=== PATIENT | male | born 1960 | race Caucasian/White ===

== ENCOUNTER → 2024-02-13 14:52 | Outpatient (REF) | payer BC, SELFPAY | LOC: DHCBS MAIN 14:52 | PROVIDERS: ATTENDING PHYSICIAN Internal Medicine Cardiovascular Disease; FAMILY PHYSICIAN Family Medicine | DX: I48.91 Unspecified atrial fibrillation (principal) | CPT/HCPCS: 93306 ==

== ENCOUNTER 2024-03-12 10:19 | Day surgery (SDC) | payer MEDICARE, BC, SELFPAY ==
[2024-03-12 11:50] LABS: Glucose - Point of Care 146 mg/dl (70-99)
--- NOTE | 2024-03-12 12:03 | ITS.CL.CARDI ---
Shell Shop Supervisor - Cardioversion
Cardioversion
Procedure Report:
Procedure: Direct current electrical cardioversion
Pre-operative diagnosis: Persistent atrial fibrillation
Post-operative diagnosis: Persistent atrial fibrillation status post DC cardioversion to sinus rhythm
Anesthesia: MAC
Attending Physician: Pedro Pablo Rodriguez MD
Procedure Description: The patient was brought to the electrophysiology laboratory in the fasting state. Adherence to anticoagulation regimen was confirmed. Informed consent was obtained from the patient prior to the start of the procedure.
Electrodes were placed on the patient and connected to an external defibrillator. Monitoring of blood pressure, ECG tracings, and pulse oximetry was initiated. The pads were applied to the patient in the anterior and posterior positions. The patient
was sedated by the anesthesiologist. 200 joule and subsequent 360 joule biphasic synchronized shocks was delivered to the patient under MAC anesthesia. Sinus rhythm was successfully restored. The patient recovered uneventfully from MAC anesthesia.
There were no immediate post-procedure complications. The patient left the lab in good condition. The attending physician was present throughout the entire procedure.
Impression: Successful direct current cardioversion with jehovah's witness of sinus rhythm after 200 joule and subsequent 360 joule biphasic synchronized shocks.
== END 2024-03-12 13:10 | disposition home or self-care (01) ==
LOC: CATH 10:19
PROVIDERS: ATTENDING PHYSICIAN Internal Medicine Cardiovascular Disease; FAMILY PHYSICIAN Family Medicine
DX: I48.19 Other persistent atrial fibrillation (principal); I10 Essential (primary) hypertension; E78.00 Pure hypercholesterolemia, unspecified; E11.9 Type 2 diabetes mellitus without complications; G47.33 Obstructive sleep apnea (adult) (pediatric); K21.9 Gastro-esophageal reflux disease without esophagitis; E66.9 Obesity, unspecified; Z68.41 Body mass index [BMI] 40.0-44.9, adult; Z87.891 Personal history of nicotine dependence; Z79.84 Long term (current) use of oral hypoglycemic drugs; Z79.82 Long term (current) use of aspirin
CPT/HCPCS: 82962; 92960; 93005

== ENCOUNTER → 2024-04-14 11:32 | Outpatient (REF) | payer MEDICARE, BC, SELFPAY | LOC: RAD 11:32 | PROVIDERS: ATTENDING PHYSICIAN Family Medicine | DX: Z13.6 Encounter for screening for cardiovascular disorders (principal); Z87.891 Personal history of nicotine dependence | CPT/HCPCS: 76770 ==

== ENCOUNTER → 2024-05-18 12:55 | Outpatient (REF) | payer MEDICARE, BC, SELFPAY ==
[2024-05-18 13:22] LABS: % Basophils 0.7 % (0-2); % Eosinophils 3.3 % (0-6); % Immature Granulocytes 0.4 % (0-0.5); % Lymphocytes 15.1 % (20.5-51.1); % Monocytes 8.9 % (1.7-9.3); % Neutrophils 71.6 % (42.2-75.2); Absolute Basophils 0.1 10^3/uL (0-0.2); Absolute Eosinophils 0.3 10^3/uL (0-0.7); Absolute Lymphocytes 1.4 10^3/uL (1.2-3.4); Absolute Monocytes 0.8 10^3/uL (0.1-0.6); Absolute Neutrophils 6.6 10^3/uL (1.4-6.5); Hematocrit 42.7 % (39.0-52.0); Hemoglobin 12.7 g/dL (13.0-18.0); Mean Corp Hgb Conc. 29.7 g/dL (33.0-37.0); Mean Corpuscular Hgb 24.4 pg (27.0-31.0); Mean Platelet Volume 9.8 fL (7.4-10.4); Nucleated Red Blood Cells % 0 % (-); Platelet Count 225 10^3/uL (130-400); Red Blood Cell Count 5.21 10^6/uL (4.70-6.10); Red Cell Dist. Width 17.2 % (11.5-14.5); White Blood Cell Count 9.2 10^3/uL (4.8-10.8)
[2024-05-18 13:32] LABS: INR 2.13; PT 23.7 Sec (11.4-14.6)
[2024-05-18 13:35] LABS: ALT (SGPT) 25 U/L (0-50); AST (SGOT) 28 U/L (17-59); Albumin 4.3 g/dl (3.5-5.0); Alkaline Phosphatase 63 U/L (38-126); Blood Urea Nitrogen 23 mg/dl (9-20); Carbon Dioxide 32 mmol/L (22-30); Chloride 102 mmol/L (98-107); Glucose 98 mg/dl (70-99); Magnesium 1.9 mg/dl (1.6-2.3); Potassium 4.4 mmol/L (3.5-5.1); Sodium 142 mmol/L (135-145); Total Bilirubin 0.9 mg/dl (0.2-1.3); Total Protein 7.2 g/dl (6.3-8.2); eGFR > 60.00
== END ==
LOC: SDSPAT 12:55
PROVIDERS: ATTENDING PHYSICIAN Internal Medicine Cardiovascular Disease; FAMILY PHYSICIAN Family Medicine; OTHER PHYSICIAN Internal Medicine Cardiovascular Disease
DX: Z01.818 Encounter for other preprocedural examination (principal); I48.0 Paroxysmal atrial fibrillation
CPT/HCPCS: 36415; 75572; 80053; 83735; 85025; 85610; 86850; 86900; 86901; Q9967

== ENCOUNTER 2024-06-04 08:57 | Day surgery (SDC) | payer MEDICARE, BC, SELFPAY ==
[2024-05-18 13:05] VITALS: BMI 47.3
[2024-06-04] VITALS (11 sets, daily range): BP systolic 82–147; BP diastolic 59–84
[2024-06-04 09:55] LABS: Glucose - Point of Care 131 mg/dl (70-99)
--- NOTE | 2024-06-04 11:04 | ITS.CL.ABL ---
Environmental Management Specialist - Ablation
Ablation
Procedure Report:
Primary Client Services Director: Pedro Pablo Rodriguez MD
Procedure Date: 06/04/2024
Patient History:
Patient is a pleasant 64-year-old male with history of hypertension, hypercholesterolemia, diabetes mellitus type 2, sleep apnea, chronic lower extremity swelling, morbid obesity, and symptomatic persistent atrial fibrillation.
See H&P for complete details.
Indication:
Symptomatic persistent atrial fibrillation
Early recurrence following cardioversion
Arrhythmia Specific History:
Prior Medical Therapies for Rate and Rhythm Control:
X Beta-ami
[ ] Calcium channel-ami
[ ] Amiodarone
[ ] Dronederone
[ ] Sotalol
[ ] Flecainide
[ ] Dofetilide
[ ] Options limited by bradycardia
[ ] Options limited by comorbid renal disease
Prior Procedural Therapies for AF/AFL:
X Cardioversion
[ ] Pulmonary Vein Isolation
[ ] Posterior Wall Isolation
[ ] Additional lines (Specify)
[ ] Surgical Mclain-MAZE or PVI (Specify)
Procedure Performed:
X AF ablation procedure (66577) -- includes LA/CS pacing, trans-septal, 3D mapping, + ICE
[ ] +IV drug (49157)
[ ] +Other Arrhythmia (75931)
X +Other AF Line/ablation (79355) -- posterior wall isolation
Risks and expected recovery has been explained in detail. Alternative options have been explored, and in a shared-decision making fashion we have decided that this was the most appropriate procedure.
Method
NPO status confirmed. Grounding pad applied. Defibrillator pads applied. Continuous surface ECG, pulse oximetry, and blood pressure were monitored. Procedure was performed under general anesthesia, with anesthesia services.
Both groins were clipped, prepped with Chloraprep, and draped in sterile fashion. Time out was called. Local anesthesia administered with bupivacaine. The right and left femoral veins were accessed for catheter placement, using ultrasound guidance,
micro-puncture needle/wire, and modified seldinger technique. 3 sheaths were placed. The following catheters were used:
[ ] Tacticath SE (D/F Curve) ablation catheter
X Viewflex 9Fr ICE catheter
X Inquiry decapolar 6Fr diagnostic catheter
[ ] CRD Hex 6Fr
[ ] Arctic Front Advance Cryoballoon ([ ]28mm[ ]23mm)
[ ] Achieve Advance mapping catheter ([ ]15mm[ ]20mm)
X FlexCath Contour 10 Fr with PulseSelect PFA Catheter
X Advisor HD Grid Mapping Catheter, SE
[ ] Acuson AcuNav 8 Fr ICE catheter
[ ]Other: [ ]
Intracardiac ultrasound (ICE) was carefully advanced into the right atrium to guide sheath placement over a J-wire, catheter placement, guide trans-septal puncture, identify potential complications, identify anatomic structures and ensure proper
contact between ablation catheter and tissue.
Heparin was given prior to trans-septal puncture. Heparin was given to achieve and maintain a target ACT of 300-400 seconds throughout the procedure.
Trans-septal access was performed under ICE guidance. The trans-septal puncture was performed with a SafeSept wire through a Brockenbrough needle assembly through the steerable sheath. The wire was visualized as it entered the LSPV and system
advanced under ICE guidance and fluoroscopy into the LA. The Brockenbrough needle assembly, SafeSept wire and sheath dilator were removed under negative pressure. LA pressure was measured and recorded.
ICE and 3D mapping was performed to identify relevant cardiac structures. A careful 3D map was created to assess for regions of low-voltage and abnormal electrogram signals using HD grid mapping catheter and PulseSelect catheter. Additional mapping
was performed as outlined below.
Prior to ablation, glycopyrrolate was provided. PulseSelect catheter was advanced over J-wire to the ostium of each vein. Pulmonary vein isolation was performed with ostial and antral lesions in a circumferential manner. Contact was visualized via
EAM, ICE, fluoroscopy, and EGM signals. Posterior wall isolation was performed by anchoring the J-wire within the pulmonary vein and placing the PulseSelect catheter in contact with the posterior wall as visualized by aforementioned methods.
Following completion of ablation lesions, sinus rhythm was restored with a 360J synchronized DCCV (intial attempt with 300J DCCV unsuccessful) and a post-ablation voltage/activation map was performed in sinus rhythm. Entrance and exit block were
confirmed for each vein and the posterior wall.
Catheter and sheath were removed from the left atrium and post-ablation intracardiac echo evaluation was consistent with pre-ablation with no changes and no pericardial effusion and there is no left atrial thrombus or left ventricle thrombus seen.
Electrophysiology study was performed. Hemostasis was obtained with Vascade for each sheath and with manual pressure. Protamine was used for reversal.
Estimated Blood Loss
10 mL
Complications
None
Fluoroscopy: 13.4 minutes; 259.92 mGy; DAP 27.7
Baseline Intervals:
Rhythm: AF
QRS: 83 ms
QT: 372 ms
QTc: 441 ms
Post-Procedure Intervals:
CO: 177 ms
QRS: 83 ms
QT: 441 ms
QTc: 403 ms
A-A: 1200 ms
R-R: 1200 ms
AVWB: 410 ms
AVNERP: 600/370 ms
Recommendations
- Bedrest with straight-leg precautions as ordered
- Anticipate same day discharge if patient meeting clinical metrics
- Resume home medications as indicated
- Ok to resume anticoagulation tonight if patient and groin sites stable
- PPI daily for 30 days
- Plan for follow-up in office with Dr. Rodriguez
Damian Sparks,
Clinical Cardiac Planner Internship
cc: Pedro Pablo Rodriguez MD; Brianna Rutherford MD
[2024-06-04 11:44] LABS: ACT-LR - POC 292 Seconds (116-155)
[2024-06-04 12:00] LABS: ACT-LR - POC 337 Seconds (116-155)
[2024-06-04 12:17] LABS: ACT-LR - POC 332 Seconds (116-155)
[2024-06-04 12:24] LABS: Glucose - Point of Care 106 mg/dl (70-99)
[2024-06-04 12:39] LABS: ACT-LR - POC 374 Seconds (116-155)
[2024-06-04 13:19] LABS: ACT-LR - POC 311 Seconds (116-155)
[2024-06-04 13:48] LABS: ACT-LR - POC 232 Seconds (116-155)
[2024-06-04] MEDS: PROSCAR 5 MG PO (15:29)
[2024-06-04 15:39] LABS: ACT-LR - POC > 397 Seconds (116-155)
--- NOTE | 2024-06-04 16:16 | W.PN.UPDATE ---
Update Note
Progress Note Update
Pt seen post PFA. Groin site with vascade closure, no ht/bleeding. OOB ambulating, urinating without difficulty. Post EKG NSR 1st deg AVB as before, no acute changes. Resume xarelto tonight and continue other meds as before. Pt uses O2 2LNC at
night, and O2 levels in recovery have been low 90s, which is baseline for this patient. Followup with Dr. Henao as scheduled. Home later today if groin site/tele remain stable.
== END 2024-06-04 17:15 | disposition home or self-care (01) ==
LOC: CATH 08:57
PROVIDERS: ATTENDING PHYSICIAN Internal Medicine Cardiovascular Disease; FAMILY PHYSICIAN Family Medicine; OTHER PHYSICIAN Internal Medicine Cardiovascular Disease
DX: I48.19 Other persistent atrial fibrillation (principal); I10 Essential (primary) hypertension; E11.9 Type 2 diabetes mellitus without complications; G47.30 Sleep apnea, unspecified; E78.00 Pure hypercholesterolemia, unspecified; E66.01 Morbid (severe) obesity due to excess calories; M79.89 Other specified soft tissue disorders
CPT/HCPCS: C1732; C1733; C1769; C1892; C1766; C1759; C1894; 76937; 82962; 85347; 86900; 86901; 93005; 93656; C1760

== ENCOUNTER 2024-06-08 20:07 | Inpatient (IN) | payer MEDICARE, BC, SELFPAY ==
[2024-06-08] VITALS (14 sets, daily range): BP systolic 82–145; BP diastolic 52–104; PULSE 55; BMI 45.5
[2024-06-08 17:20] LABS: % Basophils 0.5 % (0-2); % Eosinophils 5.4 % (0-6); % Immature Granulocytes 0.4 % (0-0.5); % Lymphocytes 13.8 % (20.5-51.1); % Monocytes 10.7 % (1.7-9.3); % Neutrophils 69.2 % (42.2-75.2); Absolute Eosinophils 0.5 10^3/uL (0-0.7); Absolute Lymphocytes 1.2 10^3/uL (1.2-3.4); Absolute Monocytes 0.9 10^3/uL (0.1-0.6); Absolute Neutrophils 5.8 10^3/uL (1.4-6.5); Hematocrit 39.9 % (39.0-52.0); Hemoglobin 11.8 g/dL (13.0-18.0); Mean Corp Hgb Conc. 29.6 g/dL (33.0-37.0); Mean Corpuscular Hgb 24.6 pg (27.0-31.0); Mean Corpuscular Volume 83.1 fL (80.0-94.0); Mean Platelet Volume 10.4 fL (7.4-10.4); Nucleated Red Blood Cells % 0 % (-); Platelet Count 183 10^3/uL (130-400); Red Cell Dist. Width 18.1 % (11.5-14.5); White Blood Cell Count 8.4 10^3/uL (4.8-10.8)
--- NOTE | 2024-06-08 17:27 | ED.GENMED ---
History of Present Illness
General
Chief Complaint: Breathing Problem
Time Seen by Provider: 06/08/24 17:00
History of Present Illness
History of Present Illness:
64-year-old male presents to the emergency department for evaluation of weight gain and difficulty breathing since undergoing a cardiac ablation on 06/04. Has been complaint with lasix. Feels that he has not been urinating well. No fevers or chills.
No chest pain. 5-8lb weight gain but he admittedly does not adhere to daily weights
Past History
Past History
ED Past Medical History: HTN, Hypercholesterolemia, Hypothyroidism and Other (psoriasis)
Social History
Personal:
Living: with family
Employment: Retired
Review of Systems
Review of Systems
Allergies reviewed?: Yes
All Other Systems: ROS reviewed and negative except as documented in HPI and ROS
Phy Exam
Physical Exam
Physical Exam:
GEN: Tachypnea, respiratory distress, diaphoresis
Eyes: PERRLA, EOMs intact, no scleral icterus
HENT: NCAT, oral mucosa moist unable to assess for JVD due to body habitus
Lungs: Poor inspiratory effort, tachypneic with increased respiratory effort, no obvious crackles
Cardiac: RRR, no M/R/G, no peripheral edema. Radial pulses 2+ bilat
Abdomen: Protuberant abdomen
Neuro: AO x 3
MSK: No gross deformity or ecchymosis. Severe bilateral lower extremity edema with serous drainage weeping from the leg
Skin: No rashes, petechiae. Normal color, no pallor or jaundice.
Psych: Calm, cooperative, proper hygiene
Scores
Heart Failure Risk
Heart Failure Risk Score: Yes
History of Stroke or TIA: No
History of intubation for respiratory distress: No
Heart rate on ED arrival >/= 110: No
SaO2 <90% on arrival on room air: Yes
HR >/=110 during 3min walk test (or too ill to perform test): Yes
ECG has acute ischemic changes: Yes
Urea >/=12mmol/L (BUN 33.6mg/dL): No
Serum CO2>/=35mmol/L: No
Troponin I or T elevated to UT Level (0.4mg/dL): Yes
NT-proBNP >/=5,000ng/L (5,000pg/ml): No
HF Risk Score: 7
Admission Status: VERY HIGH RISK 69.8% Consider admission to hospital
Course
Orders/Labs/Results
Orders:
Orders
06/08/24 16:39
EKG [Electrocardiogram (*1)] Urgent
Reason for Study: Shortness of Breath
06/08/24 16:40
EKG- Treatment ONCE
06/08/24 17:06
CR Chest Portable - 1 View Urgent
Comment:
Reason For Exam: SOB
Reason Study Needs to be Portable: Other
06/08/24 17:12
Complete Blood Count/With Diff Urgent
Comprehensive Metabolic Panel Urgent
NT-proBNP Urgent
Troponin I Urgent
06/08/24 18:10
Furosemide [Lasix] 40 mg IV ONCE ONE
06/08/24 18:48
Urinalysis Reflex To Culture Urgent
Date Specimen was Collected: 06/08/24
Time Specimen was Collected: 18:47
Urine Microscopic Reflex Cult Urgent
06/08/24 19:45
Admit/Transfer Patient As Directed
Co-Sign Provider:
Level of Care: Inpatient admission
Assign to:: Telemetry
Physician / Group: Raven Das
Diagnosis: heart failure
Reason for Telemetry: Pulmonary Edema
Date to Stop Telemetry: 06/11/24
Time to Stop Telemetry: 11:00
Reason for Hospitalization: heart failure
Expected length of stay greater than two midnights?: Yes
ELOS- Estimated Length of Stay in days: 3
I certify the patient meets the requirements for IP care: Yes
PRN Pain Medication Management As Directed
May give lesser potent ordered pain med per pt: Yes
preference::
Protocol:: Medication orders for pain may be administered in a
manner that supports deferring to patient preference
when the pt is:
- Requesting an ordered lesser potent pain medication.
Least to most potent pain medications are defined
as: acetaminophen < NSAID < tramadol < opioids
(morphine, oxycodone, hydromorphone).
- Requesting a lesser dose of the same medication IF
ORDERED.
- Requesting a less intrusive route of administration
if both routes are prescribed by the provider (PO <
IV).
06/08/24 19:46
Code Status As Directed
Resuscitation Status: Full Code
06/11/24 11:00
DC Protocol for Telemetry ONCE
Abnormal Lab Results
06/08/24 06/08/24
17:12 18:48
Hgb 11.8 L g/dL
(13.0-18.0)
MCH 24.6 L pg
(27.0-31.0)
MCHC 29.6 L g/dL
(33.0-37.0)
RDW 18.1 H %
(11.5-14.5)
Absolute Monos (auto) 0.9 H 10^3/uL
(0.1-0.6)
Lymphocytes % 13.8 L %
(20.5-51.1)
Monocytes % 10.7 H %
(1.7-9.3)
BUN 40 H mg/dl
(9-20)
Glucose 108 H mg/dl
(70-99)
Troponin I 0.224 H* ng/ml
Ur Occult Blood Reflex 4+ A
(Negative)
Urine Urobilinogen 2+ A
(Neg - 1+)
Urine RBC >100 A /HPF
(0-2)
Urine Bacteria (Reflex) Few A
(Negative)
Urine Glucose 3+ A
(Negative)
06/08/24 17:12
06/08/24 17:12
Vital Signs
Initial and Last Documented VS:
Initial Vital Signs
Temp Pulse Resp BP Pulse Ox
98 F 62 22 82/58 86
06/08/24 16:31 06/08/24 16:31 06/08/24 16:31 06/08/24 16:31 06/08/24 16:31
Last Documented Vital Signs
Temp Pulse Resp BP Pulse Ox
98 F 53 18 127/104 98
06/08/24 16:31 06/08/24 20:15 06/08/24 20:15 06/08/24 20:00 06/08/24 20:15
MDM/Problems Addressed
MDM/Problems Addressed:
Clinically patient is displaying signs of acute decompensated heart failure with weight gain and hypoxia. Will start IV diuresis and admit to the hospitalist service. Limited bedside cardiac ultrasound performed by myself shows no evidence for
significant pericardial effusion
Comment
Comment:
EKG independently interpreted by me shows a sinus bradycardia with T wave inversions in the precordial leads as well as lead III that are new since last EKG.
*Critical Care Note
Total Time (30-74mins, 75-104mins- exclusive of procedures): Not Applicable
ED Attending Note
-
Portions of this chart may have been created with voice recognition software.� Occasional wrong word or��sound alike� substitutions may have occurred due to the inherent limitations of voice recognition software.
Discharge Plan
Departure
Patient Disposition: Admit
Date of Disposition: 06/08/24
Time of Disposition: 19:06
Admit to: Telemetry
Presentation/result/management discussed w/ accepting MD/DO: Hospitalist
Discharge Problem:
Acute heart failure with preserved ejection fraction (HFpEF)
Interventions
Interventions:
*Risk Screen - Suicide Last Done: 06/08/24 16:31
*General Assessment Last Done: 06/08/24 16:31
*Neglect/Abuse Screening Last Done: 06/08/24 16:31
ED- Fall Risk Assessment Last Done: 06/08/24 17:40
*ED COVID-19 Vaccine History Last Done: 06/08/24 16:31
ED- Cardiac Assessment Last Done: 06/08/24 17:40
ED- Pulmonary Assessment Last Done: 06/08/24 17:40
[2024-06-08 17:32] LABS: ALT (SGPT) 25 U/L (0-50); AST (SGOT) 31 U/L (17-59); Albumin 3.9 g/dl (3.5-5.0); Alkaline Phosphatase 56 U/L (38-126); Blood Urea Nitrogen 40 mg/dl (9-20); Calcium 8.9 mg/dl (8.4-10.2); Carbon Dioxide 27 mmol/L (22-30); Chloride 104 mmol/L (98-107); Glucose 108 mg/dl (70-99); Potassium 4.4 mmol/L (3.5-5.1); Sodium 140 mmol/L (135-145); Total Protein 6.4 g/dl (6.3-8.2); eGFR > 60.00
[2024-06-08 17:46] LABS: NT-proBNP 720 pg/ml; Troponin I 0.224 ng/ml
[2024-06-08] MEDS: LASIX 40 MG IV (18:53)
[2024-06-08 18:55] LABS: Urine Albumin Negative (Neg - Trace); Urine Bilirubin Negative (Negative); Urine Character Clear (Clear); Urine Color Yellow; Urine Glucose 3+ (Negative); Urine Ketone Negative (Negative); Urine Leukocyte Negative (Negative); Urine Nitrite Negative (Negative); Urine Occult Blood 4+ (Negative); Urine Urobilinogen 2+ (Neg - 1+)
[2024-06-08 19:02] LABS: Urine Squamous Cell 0-2 /LPF (Few)
[2024-06-08 19:03] LABS: Urine Bacteria Few (Negative); Urine Red Blood Cell >100 /HPF (0-2); Urine White Cell 0-2 /HPF (0-5)
--- NOTE | 2024-06-08 19:24 | HPS.HSE ---
Family Physician
-
Family Physician: Brianna Rutherford
Chief Complaint
-
shortness of breath
History of Present Illness
Mr. Ashutosh Coats is a 64 yo man with hx atrial fibrillation s/p cardioversion 03/12/24 with return of afib s/p ablation 06/04/24, essential HTN, DM 2, LE swelling on lasix pre-ablation presents to the ER with weight gain and shortness of breath.
Patient states that since procedure he has had increased swelling and bloating in abdomen. No fevers/chills. No chest pain. He denies orthopnea. He wears oxygen at night but used during the day for shortness of breath. No
nausea/vomiting/diarrhea. He has chronic LE swelling.
Medical History
Past Medical History
Past Medical History: Reports Other (atrial fibrillation s/p cardioversion 03/12/24 with return of afib s/p ablation 06/04/24, essential HTN, DM 2, LE swelling on lasix pre-ablation)
Past Surgical History: Reports Other
Social History
Tobacco: Non-smoker
Alcohol: Occasional
Family History
Family History: Not pertinent
Allergies / Home Medications
Allergies reflects when Allergies were last updated in [facility].
Home Medications with original date entered in [facility]
Allergy/Medication List:
Allergies
Allergy/AdvReac Type Severity Reaction Status Date / Time
latex Allergy Mild Rash Verified 09/23/22 14:57
bacitracin Allergy Rash Verified 09/23/22 14:57
[From Neosporin
([id number])]
bacitracin zinc Allergy Rash Verified 09/23/22 14:57
[From Neosporin
([id number])]
neomycin sulfate Allergy Rash Verified 09/23/22 14:57
[From Neosporin
([id number])]
polymyxin B Allergy Rash Verified 09/23/22 14:57
[From Neosporin
([id number])]
Home Medications
furosemide 20 mg tablet 20 mg PO DAILY 07/26/14
losartan 100 mg tablet 100 mg PO DAILY 07/26/14
metoprolol succinate 50 mg tablet,extended release 24 hr 50 mg PO BID 07/26/14
gabapentin 400 mg capsule 1,200 mg PO BID 02/11/22
risankizumab-rzaa 150 mg/mL subcutaneous syringe (Skyrizi) 150 mg SC [id number] ##0 02/11/22
atorvastatin 20 mg tablet 20 mg PO DAILY 06/04/24
baclofen 10 mg tablet 10 mg PO BID 06/04/24
empagliflozin 10 mg tablet (Jardiance) 10 mg PO DAILY 06/04/24
finasteride 5 mg tablet 5 mg PO DAILY 06/04/24
hydralazine 25 mg tablet 25 mg PO BID taken w/ 50mg= 75mg 06/04/24
levothyroxine 200 mcg tablet (Synthroid) 200 mcg PO DAILY taken w/ 25mcg= 225mcg 06/04/24
levothyroxine 25 mcg tablet (Synthroid) 25 mcg PO DAILY taken w/ 200mcg= 225mcg 06/04/24
pantoprazole 40 mg tablet,delayed release 40 mg PO DAILY 06/04/24
rivaroxaban 20 mg tablet (Xarelto) 20 mg PO DAILY 06/04/24
tamsulosin 0.4 mg capsule 0.4 mg PO HS 06/04/24
triamcinolone acetonide 0.1 % topical ointment 1 applic topical DAILYPRN PRN psorasis 06/04/24
cholecalciferol (vitamin D3) 25 mcg (1,000 unit) tablet 25 mcg PO DAILYPRN PRN supplement 06/08/24
hydralazine 50 mg tablet 50 mg PO BID taken w/ 25mg= 75mg 06/08/24
therapeutic multivitamin 1 tab PO DAILY 06/08/24
Review of Systems
-
History Source: Patient
A 12 point ROS was completed and negative except as noted: Yes
Physical Exam
Vital Signs
Vital Signs
Temp Pulse Resp BP Pulse Ox
98 F 56 21 113/63 98
06/08/24 16:31 06/08/24 19:15 06/08/24 19:15 06/08/24 19:00 06/08/24 19:19
Physical Exam
General: No Apparent Distress
HEENT: PERRLA
Respiratory: Decreased Breath Sounds
Cardiac: JVD
GI: Soft and Non Tender
Musculoskeletal: Other (chronic venous stasis discoloration )
Skin: Warm and Dry; No Rash
Neuro: AO x 3
Psych: Calm
Laboratory Results
-
06/08/24 17:12
06/08/24 17:12
Laboratory Results
Total Bilirubin 1.0 mg/dl (0.2-1.3) 06/08/24 17:12
AST 31 U/L (17-59) 06/08/24 17:12
ALT 25 U/L (0-50) 06/08/24 17:12
Alkaline Phosphatase 56 U/L (38-126) 06/08/24 17:12
Troponin I 0.224 ng/ml H* 06/08/24 17:12
Data Reviewed
-
Diagnostic Radiology: Report Reviewed by me
Lab Data: Labs Reviewed by me
Impression/Plan
-
Mr. Ashutosh Coats is a 64 yo man with hx atrial fibrillation s/p cardioversion 03/12/24 with return of afib s/p ablation 06/04/24, essential HTN, DM 2, LE swelling on lasix pre-ablation presents to the ER with weight gain and shortness of breath
found to be in heart failure.
Triage VS: T 98, P 62, RR 22, BP 82/58 up to 140/67, SpO2 86%
LABS: WBC 8.4, Hg 11.8, PLT 183, Na 140, K+ 4.4, Cl 104, CO2 27, Cr 1.0
Trop 0.224, BNP 720
EKG: sinus bradycardia @ 58, TWI anterior leads
CXR
IMPRESSION:
Generalized prominence of bronchovascular markings, possibly accentuated by nonstandard AP portable technique and patient body habitus. The possibility of mild vascular congestion cannot be entirely excluded in the proper clinical setting.
Stable chronic elevation of the right diaphragm with adjacent atelectasis/scarring.
MAR:
Lasix 40mg IV x 1
TTE 02/13/24
CONCLUSIONS
Normal left ventricular size and systolic function. Moderate concentric left
ventricular hypertrophy. Wall motion analysis is limited by the image quality.
LV ejection fraction is 60% by Tompkins's method of discs. Diastolic function
indeterminate due to atrial fibrillation.
Top normal right ventricular size. Normal right ventricular function.
Mild mitral regurgitation.
Aortic sclerosis without stenosis.
Mild tricuspid regurgitation. Estimated pulmonary artery pressure of 27 mmHg
assuming a right atrial pressure of 3 mmHg.
Heart Failure preserved EF Acute Exacerbation
Hypoxic Respiratory Insufficiency
-admit to tele
-Lasix 40mg IV BID
-cardiology consult
-repeat echo
-strict I/O, daily weights
-SYNTHETIC FILAMENT EXTRUDER Jardiance
Non-SC Troponin Elevation
-no chest pain, trend Troponins
Atrial Fibrillation s/p Ablation 06/04/24
-patient takes Xarelto in AM and took this morning, continue
-HR 50's, no dizziness, continue metoprolol with hold parameters
HLD
-SYNTHETIC FILAMENT EXTRUDER Statin
Essential Hypertension
-SYNTHETIC FILAMENT EXTRUDER Losartan, Hydralazine
Hypothyroidism
-SYNTHETIC FILAMENT EXTRUDER Synthroid
BPH
bladder retention in ER s/p straight cath
-SYNTHETIC FILAMENT EXTRUDER Flomax, finasteride
-bladder scan and straight cath PRN
DVT PPx - SYNTHETIC FILAMENT EXTRUDER Xarelto
FULL CODE
76 MINUTES spent on patient evaluation, medical decision making, coordination of care
--- NOTE | 2024-06-08 21:45 | PTCARENOTE ---
Received patient from ED via stretcher. Patient stood and pivoted from stretcher to bed with assistance. Pulse ox 97% on 6L. Patient slightly LITTLEJOHN but denies feeling SOB. No current complaints of pain. Oriented patient to room and placed call doe
within reach.
[2024-06-08] MEDS: APRESOLINE 25 MG PO (22:01)
[2024-06-08] MEDS: FLOMAX 0.4 MG PO (22:01)
[2024-06-08] MEDS: LIORESAL 10 MG PO (22:01)
[2024-06-08] MEDS: APRESOLINE 50 MG PO (22:01)
[2024-06-08] MEDS: NEURONTIN 1200 MG PO (22:02)
[2024-06-08] MEDS: TOPROL XL PO (22:03)
[2024-06-08 23:44] LABS: Troponin I 0.144 ng/ml
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
[2024-06-09 03:43] VITALS: BP 121/62
[2024-06-09 06:00] VITALS: BMI 45.3
[2024-06-09] MEDS: SYNTHROID 25 MCG PO (06:10)
[2024-06-09] MEDS: SYNTHROID 200 MCG PO (06:10)
[2024-06-09 07:33] LABS: HDL Cholesterol 23 mg/dl; LDL Cholesterol, Calculated 60 mg/dl; Total Cholesterol 106 mg/dl (50-199); Triglyceride 118 mg/dl (10-149); Troponin I 0.129 ng/ml; Very Low Density Lipoprotein 23 mg/dl (0-30)
[2024-06-09 07:35] VITALS: BP 120/64
[2024-06-09 08:04] LABS: TSH Reflex To Free T4 6.94 uIU/ml (0.47-4.68)
[2024-06-09 08:33] LABS: Free T4 1.34 ng/dl (0.78-2.19)
[2024-06-09] MEDS: NEURONTIN 1200 MG PO ×2 (09:27→19:32)
[2024-06-09] MEDS: PROTONIX 40 MG PO (09:27)
[2024-06-09] MEDS: APRESOLINE 50 MG PO ×2 (09:27→19:57)
[2024-06-09] MEDS: LASIX 40 MG IV ×2 (09:27→15:50)
[2024-06-09] MEDS: APRESOLINE 25 MG PO ×2 (09:28→19:58)
[2024-06-09] MEDS: XARELTO 20 MG PO (09:28)
[2024-06-09] MEDS: PROSCAR 5 MG PO (09:28)
[2024-06-09] MEDS: COZAAR 100 MG PO (09:28)
[2024-06-09] MEDS: LIORESAL 10 MG PO ×3 (09:29→19:57)
[2024-06-09] MEDS: TOPROL XL PO (09:29)
[2024-06-09] MEDS: LIPITOR 20 MG PO (09:30)
[2024-06-09] MEDS: JARDIANCE 10 MG PO (09:30)
[2024-06-09 11:15] VITALS: BP 103/56
--- NOTE | 2024-06-09 11:34 | CON.CAR ---
Addendum entered and electronically signed by Damian Sparks DO 06/09/24 12:14:
I saw and examined the patient.
The Trainmaster's note was reviewed and I agree with the note.
Comment:
Patient reports worsening shortness of breath and weight gain 1 day following pulmonary vein isolation. Patient seen in his PCPs office noted to be up 10 pounds with a pulse ox 86% on room air with scrotal swelling and therefore recommended for
evaluation emergency department due to acute heart failure. Patient provided IV Lasix which has improved breathing, oxygenation, and weight. Echocardiogram ordered this admission shows preserved LVEF with no regional wall motion abnormality
troponin peak 0.2 downtrending likely related to recent pulmonary vein isolation.
GEN: NAD. AAOx3
HEENT: EOMI, MMM
LUNGS: Wearing oxygen at 6 L NC. Decreased BS at bases B/L without wheeze or rales.
CV: Reg, SR on tele. S1/S2, no murmur
ABD: soft, BS+, NT, ND
EXT: +2 B/L LE edema. No clubbing, cyanosis or lesions B/L.; R groin site soft, mild tender no swelling, healing small ecchymosis no hematoma.
NEURO: Gross non-focal
SKIN: Warm, dry and pink. No rash
A/P as below
IV diuresis, strict intake and outputs and daily weights
Replete electrolytes goal K greater than 4, mag greater than 2
Continue oral anticoagulation and beta-blockade
Monitor on telemetry
Consider outpatient stress testing due to current infection
Original Note:
Consultation
Consultation Request
Date/Time Consultation Requested: 06/08/24 at 2113
Date/Time Consultation Performed: 06/09/24 at 0830
Requesting Provider: Dr. Alvarado
Performing Provider: Dr. Sparks
Reason for Consultation: Acute HF
Medical History
-
History of Present Illness:
Patient came to [facility] yesterday with increased SOB and is now admitted with acute HF and cardiology has been consulted. Patient has a h/o chronic LE edema and he is chronically on Lasix 20 mg PO daily. He also has a history of obstructive sleep
apnea on CPAP and he also uses oxygen at 2 L nasal cannula nightly. He also has a h/o HTN and takes losartan 100 mg daily, Toprol-XL 50 mg daily and hydralazine 75 mg twice daily. He also has a history of paroxysmal atrial fibrillation that was
symptomatic and he was seen by EP and recommended PVI with pulsed field ablation which was performed on 06/04/2024. His procedure went well and he was able to be discharged to home the same day. Patient reports that he had increasing shortness of
breath on Friday into Friday and felt that his abdomen was bloated and full associated with a decreased appetite. He also had increase in his lower extremity edema which is somewhat chronic, but was acutely worse. He did not miss any doses of
his usual medications. He saw his PCP in the office yesterday and was noted that his weight was up 10 pounds from when he had left the hospital and his pulse ox was down to 86% on room air. He also had swelling in his scrotum, but no difficulty
passing urine. He was referred to ER and is now admitted with acute heart failure. He has had some initial symptomatic improvement with IV diuresis, but weight is still up 6 pounds from his dry weight.
PMH:
Paroxysmal Afib s/p PVI with PFA 06/04/24
Moderate MR by echo 06/09/24
HTN with LVH by echo
BRI on CPAP
Obese, BMI 45.2
DM 2
Past Medical History
Past Medical History: Other (in HPI)
Past Surgical History: Orthopedic and Other (pancreatic duct dilatation, thyroidectomy)
Social History
Tobacco: Former Smoker
Alcohol: Occasional
Drug: None
Personal:
Living: With Family
Family History
Family History: Hypertension and Other (COPD, Afib, pericarditis)
Allergies / Home Medications
Allergy/AdvReac Type Severity Reaction Status Date / Time
bacitracin Allergy Rash Verified 09/23/22 14:57
[From Neosporin
([id number])]
bacitracin zinc Allergy Rash Verified 09/23/22 14:57
[From Neosporin
([id number])]
latex Allergy Rash Verified 06/08/24 21:15
neomycin sulfate Allergy Rash Verified 09/23/22 14:57
[From Neosporin
([id number])]
polymyxin B Allergy Rash Verified 09/23/22 14:57
[From Neosporin
([id number])]
�Medication �Instructions �Recorded �Confirmed �Type
furosemide 20 mg tablet 20 mg PO DAILY Fluid 07/26/14 06/08/24 History
Retention/Swelling
losartan 100 mg tablet 100 mg PO DAILY Blood Pressure 07/26/14 06/08/24 History
metoprolol succinate 50 mg 50 mg PO BID Blood Pressure 07/26/14 06/08/24 History
tablet,extended release 24 hr
gabapentin 400 mg capsule 1,200 mg PO BID Pain 02/11/22 06/08/24 History
risankizumab-rzaa 150 mg/mL 150 mg SC [id number] psoriasis ##0 02/11/22 06/08/24 History
subcutaneous syringe (Skyrizi)
atorvastatin 20 mg tablet 20 mg PO DAILY High Cholesterol 06/04/24 06/08/24 History
baclofen 10 mg tablet 10 mg PO BID Muscle Spasms 06/04/24 06/08/24 History
empagliflozin 10 mg tablet 10 mg PO DAILY Diabetes 06/04/24 06/08/24 History
(Jardiance)
finasteride 5 mg tablet 5 mg PO DAILY Urinary Issue 06/04/24 06/08/24 History
hydralazine 25 mg tablet 25 mg PO BID taken w/ 50mg= 75mg 06/04/24 06/08/24 History
levothyroxine 200 mcg tablet 200 mcg PO DAILY taken w/ 25mcg= 06/04/24 06/08/24 History
(Synthroid) 225mcg
levothyroxine 25 mcg tablet 25 mcg PO DAILY taken w/ 200mcg= 06/04/24 06/08/24 History
(Synthroid) 225mcg
pantoprazole 40 mg tablet,delayed 40 mg PO DAILY Gastrointestinal 06/04/24 06/08/24 History
release Issue
rivaroxaban 20 mg tablet (Xarelto) 20 mg PO DAILY Blood Clot 06/04/24 06/08/24 History
Prevention/Tx
tamsulosin 0.4 mg capsule 0.4 mg PO HS Urinary Issue 06/04/24 06/08/24 History
triamcinolone acetonide 0.1 % 1 applic topical DAILYPRN PRN 06/04/24 06/08/24 History
topical ointment psorasis
cholecalciferol (vitamin D3) 25 25 mcg PO DAILYPRN PRN supplement 06/08/24 06/08/24 History
mcg (1,000 unit) tablet
hydralazine 50 mg tablet 50 mg PO BID taken w/ 25mg= 75mg 06/08/24 06/08/24 History
therapeutic multivitamin 1 tab PO DAILY Supplement 06/08/24 06/08/24 History
Review of Systems
-
History Source: Patient
All other systems: Negative unless noted
Physical Exam
Vital Signs
Temp Pulse Resp BP Pulse Ox
98 F 74 22 103/56 96
06/09/24 11:15 06/09/24 11:15 06/09/24 11:15 06/09/24 11:15 06/09/24 11:15
GEN: NAD. AAOx3
HEENT: EOMI, MMM
LUNGS: Wearing oxygen at 6 L NC. Decreased BS at bases B/L without wheeze or rales.
CV: Reg, SR on tele. S1/S2, no murmur
ABD: soft, BS+, NT, ND
EXT: +2 B/L LE edema. No clubbing, cyanosis or lesions B/L.
NEURO: Gross non-focal
SKIN: Warm, dry and pink. No rash
Lab Results
06/08/24 17:12
06/08/24 17:12
Troponin I 0.129 ng/ml H* 06/09/24 06:54
Kft-S-Nvxpufjazhk Pept 720 pg/ml 06/08/24 17:12
Impression / Plan
-
PCP: Dr. Rutherford
Cardiology: Dr. Rodriguez
EP: Dr. Sparks
Impression:
Acute HFpEF
Elevated Troponin
Paroxysmal Afib s/p PVI with PFA 06/04/24
Moderate MR by echo 06/09/24
HTN with LVH by echo
BRI on CPAP
Obese, BMI 45.2
DM 2
Echo 06/09/24: EF 60 to 65%, stage II diastolic dysfunction, mild concentric LVH, moderately enlarged RV size with normal RV systolic function, moderate MR, aortic sclerosis without stenosis, mild to moderate TR with PAP 60 to 65 mmHg
Plan:
-Patient came to [facility] yesterday with increased SOB and is now admitted with acute HF and cardiology has been consulted. Patient has a h/o chronic LE edema and he is chronically on Lasix 20 mg PO daily. He also has a history of obstructive sleep
apnea on CPAP and he also uses oxygen at 2 L nasal cannula nightly. He also has a h/o HTN and takes losartan 100 mg daily, Toprol-XL 50 mg daily and hydralazine 75 mg twice daily. He also has a history of paroxysmal atrial fibrillation that was
symptomatic and he was seen by EP and recommended PVI with pulsed field ablation which was performed on 06/04/2024. His procedure went well and he was able to be discharged to home the same day. Patient reports that he had increasing shortness of
breath on Friday into Friday and felt that his abdomen was bloated and full associated with a decreased appetite. He also had increase in his lower extremity edema which is somewhat chronic, but was acutely worse. He did not miss any doses of
his usual medications. He saw his PCP in the office yesterday and was noted that his weight was up 10 pounds from when he had left the hospital and his pulse ox was down to 86% on room air. He also had swelling in his scrotum, but no difficulty
passing urine. He was referred to ER and is now admitted with acute heart failure. He has had some initial symptomatic improvement with IV diuresis, but weight is still up 6 pounds from his dry weight.
-Cont Lasix 40 mg IV BID. He was taking Lasix 20 mg PO daily prior to admission.
-Weight is down at least 2 lbs, maybe more, from overnight, but true dry weight unknown.
-Echo ordered and result reviewed and noted above. His EF is preserved, but there is evidence of diastolic dysfunction.
-Patient with a h/o HTN and there is evidence of LVH on echo as well.
-Remains in SR on echo. He will continued with his usual dose of Toprol-XL 50 mg twice daily and Xarelto 20 mg daily.
-Troponin was 0.224 on admission and has trended down thereafter. No complaints of chest pain. ECG reviewed by me with ST and T wave changes anteriorly, but EF is stable by echo without wall motion abnormality. Will manage as a nonischemic
myocardial injury troponin elevation due to recent ablation.
-His last stress test was a Lexiscan nuclear stress test on 08/08/2014 at which time there was a small fixed inferior segment and apical segment defect consistent with infarction. He can be considered for stress test as an outpatient to follow-up on
this acute heart failure admission, troponin elevation and ECG changes.
[2024-06-09 12:46] VITALS: BMI 45.3
--- NOTE | 2024-06-09 13:00 | W.PN.HOSP.TC ---
Today's Communication/Plan
-
Continue Lasix
Assessment / Plan
Assessment / Plan
Patient is a pleasant 64 yo man with hx atrial fibrillation s/p cardioversion 03/12/24 with return of afib s/p ablation 06/04/24, essential HTN, DM 2, LE swelling on lasix pre-ablation presents to the ER with weight gain and shortness of breath found
to be in heart failure.
Patient has acute on diastolic congestive heart failure
Patient presented with shortness of breath.
BNP level is elevated at 720
Troponin level is 0.129
Continue IV diuresing in form of Lasix 40 mg twice daily
Daily weight.
Strict I's and O's.
Consulted cardiology. Need ischemic workup as outpatient.
CXR shows generalized prominence of bronchovascular markings, possibly accentuated by nonstandard AP portable technique and patient body habitus. The possibility of mild vascular congestion cannot be entirely excluded in the proper clinical setting.
Stable chronic elevation of the right diaphragm with adjacent atelectasis/scarring.
Echo 06/09/2024 shows
Normal left ventricular chamber size. Normal left ventricular systolic
function. Normal regional wall motion. LV ejection fraction is 60-65% by
Tompkins's method of discs. Mild concentric left ventricular hypertrophy. Stage
II diastolic dysfunction suggestive of abnormal relaxation and increased
filling pressures.
Moderately enlarged right ventricular size. Normal right ventricular systolic
function.
Biatrial dilation
Moderate mitral regurgitation.
Aortic sclerosis without stenosis.
Mild to moderate tricuspid regurgitation. Estimated pulmonary artery pressure
of 60-65 mmHg. Assuming a right atrial pressure of 15 mmHg.
Type II SD
Patient denies chest
Seen by cardiology who recommended outpatient stress test
Atrial Fibrillation s/p Ablation 06/04/24
-patient takes Xarelto in AM and took this morning, continue
-HR 50's, no dizziness, continue metoprolol with hold parameters
HLD
-SIX PACK PACKER Statin
Essential Hypertension
-SIX PACK PACKER Losartan, Hydralazine
Hypothyroidism
-SIX PACK PACKER Synthroid
BPH
bladder retention in ER s/p straight cath
-SIX PACK PACKER Flomax, finasteride
-bladder scan and straight cath PRN
CODE STATUS: Full code
DVT prophylaxis: Xarelto
Diet: Cardiac
Anticipated Discharge: 24 - 48 hours
Subjective/Interval History
-
Date of Service: June 09, 2024
Patient seen and examined at bedside, at bedside, denies any chest pain, improved shortness of breath, no abdominal pain, no nausea, no vomiting, no diarrhea or constipation.
Objective Data
-
Vital Signs:
Vital Signs
Temp Pulse Resp BP Pulse Ox
98 F 74 22 103/56 98
06/09/24 11:15 06/09/24 11:15 06/09/24 11:15 06/09/24 11:15 06/09/24 12:46
I&O
06/08/24 06/09/24 06/10/24
06:59 06:59 06:59
Intake Total 960 / 960
Output Total 2750 / 2750
Balance -1790 / -1790
Physical Exam
-
General: Well Developed and No Apparent Distress
HEENT: Normocephalic, Atraumatic and Moist Mucous Membranes
Respiratory: Rales and Rhonchi
Cardiac: Regular Rhythm and S1/S2; Negative Murmur, Rub or Gallop
GI: Soft, Nontender, Nondistended and Normal Bowel Sounds; Negative Organomegaly
Rectal: Deferred by Provider
Musculoskeletal: No Clubbing, No Cyanosis, No Edema, Edema, Right Lower Extrem and Edema, Left Lower Extrem
Skin: Negative Rash
Neuro: AO x 3 and Nonfocal/Grossly Intact
Psych: Calm
--- NOTE | 2024-06-09 13:36 | W.PN.UPDATE ---
Update Note
Progress Note Update
Updated patient's by phone for about 15 min and reviewed labs, echo and ECG. Reviewed plans for ongoing diuresis and repeat labs in AM.
[2024-06-09 15:09] VITALS: BP 135/68
[2024-06-09 19:00] VITALS: BP 106/61
[2024-06-09] MEDS: TOPROL XL 50 MG PO (19:57)
[2024-06-09 22:01] LABS: Blood Urea Nitrogen 34 mg/dl (9-20); Calcium 9.4 mg/dl (8.4-10.2); Carbon Dioxide 34 mmol/L (22-30); Estimated Creatinine Clearance 124 ml/min; Glucose 118 mg/dl (70-99); Magnesium 1.8 mg/dl (1.6-2.3); eGFR > 60.00
[2024-06-09] MEDS: FLOMAX 0.4 MG PO (22:01)
[2024-06-09 22:19] LABS: Chloride 93 mmol/L (98-107); Sodium 137 mmol/L (135-145)
[2024-06-09 23:42] VITALS: BP 126/69
[2024-06-10 04:36] VITALS: BP 110/61
[2024-06-10] MEDS: SYNTHROID 200 MCG PO (05:30)
[2024-06-10] MEDS: SYNTHROID 25 MCG PO (05:30)
[2024-06-10 06:00] VITALS: BMI 44.2
[2024-06-10 08:17] VITALS: BP 124/64
[2024-06-10 09:26] LABS: Hematocrit 40.7 % (39.0-52.0); Hemoglobin 12.1 g/dL (13.0-18.0); Mean Corp Hgb Conc. 29.7 g/dL (33.0-37.0); Mean Corpuscular Hgb 24.2 pg (27.0-31.0); Mean Corpuscular Volume 81.2 fL (80.0-94.0); Mean Platelet Volume 9.9 fL (7.4-10.4); Platelet Count 184 10^3/uL (130-400); Red Blood Cell Count 5.01 10^6/uL (4.70-6.10); White Blood Cell Count 7.3 10^3/uL (4.8-10.8)
[2024-06-10] MEDS: LASIX 40 MG IV ×2 (09:26→16:48)
[2024-06-10] MEDS: PROSCAR 5 MG PO (09:27)
[2024-06-10] MEDS: COZAAR 100 MG PO (09:28)
[2024-06-10] MEDS: NEURONTIN 1200 MG PO ×2 (09:28→20:09)
[2024-06-10] MEDS: LIPITOR 20 MG PO (09:28)
[2024-06-10] MEDS: TOPROL XL PO (09:29)
[2024-06-10] MEDS: PROTONIX 40 MG PO (09:29)
[2024-06-10] MEDS: XARELTO 20 MG PO (09:29)
[2024-06-10] MEDS: APRESOLINE 50 MG PO ×2 (09:29→20:10)
[2024-06-10] MEDS: APRESOLINE 25 MG PO ×2 (09:29→20:09)
[2024-06-10] MEDS: JARDIANCE 10 MG PO (09:29)
[2024-06-10 10:02] LABS: Blood Urea Nitrogen 30 mg/dl (9-20); Calcium 9.4 mg/dl (8.4-10.2); Carbon Dioxide 37 mmol/L (22-30); Chloride 94 mmol/L (98-107); Estimated Creatinine Clearance 122 ml/min; Glucose 98 mg/dl (70-99); Magnesium 1.9 mg/dl (1.6-2.3); Sodium 139 mmol/L (135-145); eGFR > 60.00
--- NOTE | 2024-06-10 10:41 | W.PN.CARDCBS ---
Addendum entered and electronically signed by Jeff Sinclair DO 06/10/24 13:20:
I saw and examined the patient.
The Medical Billing Associate's note was reviewed and I agree with the note.
Comment:
Plan:
Continue IV Lasix diuresis. His weight is down 8 pounds overnight with significant diuresis of approximately 4 L.
His dry weight is not clear.
He will likely require a larger Lasix dose at time of discharge.
Replete lites as needed.
Echo showed preserved LV function with enlarged RV size with normal function. Moderate severe pulmonary hypertension with pulmonary artery pressure 60 to 65 mmHg.
Medical therapy of non-DE troponin, likely secondary to his recent ablation procedure.
Remains in sinus rhythm. Continue Toprol and Xarelto.
Heart failure teaching and discussed fluid and sodium control.
He may be considered for an outpatient ischemic evaluation
Patient requested a single hospital room.
Discussed with his at bedside.
Original Note:
Today's Communication / Plan
-
Cont Lasix IV
Impression / Plan
-
PCP: Dr. Rutherford
Cardiology: Dr. Rodriguez
EP: Dr. Sparks
Impression:
Acute HFpEF
Elevated Troponin
Paroxysmal Afib s/p PVI with PFA 06/04/24
Moderate MR by echo 06/09/24
HTN with LVH by echo
BRI on CPAP
Obese, BMI 45.2
DM 2
Echo 06/09/24: EF 60 to 65%, stage II diastolic dysfunction, mild concentric LVH, moderately enlarged RV size with normal RV systolic function, moderate MR, aortic sclerosis without stenosis, mild to moderate TR with PAP 60 to 65 mmHg
Plan:
-Weight is down 8 lbs overnight and overall he has had a tremendous diuresis since admission. Talked with patient's by phone 06/09/24 and patient with increased LE edema since about the time of CV 03/12/24 so dry weight is not clear. Will
continue to diurese and follow BMP daily.
-Cont Lasix 40 mg IV BID. He was taking Lasix 20 mg PO daily prior to admission.
-Labs reviewed by me 06/10/24 and potassium 4.0 and magnesium 1.9.
-Echo showed preserved EF, mild conc LVH and stage II diastolic dysfunction.
-Remains in SR on echo. He will continued with his usual dose of Toprol-XL 50 mg twice daily and Xarelto 20 mg daily.
-Troponin was 0.224 on admission and has trended down thereafter. No complaints of chest pain. ECG reviewed by me with ST and T wave changes anteriorly, but EF is stable by echo without wall motion abnormality. Will manage as a nonischemic
myocardial injury troponin elevation due to recent ablation.
-His last stress test was a Lexiscan nuclear stress test on 08/08/2014 at which time there was a small fixed inferior segment and apical segment defect consistent with infarction. He can be considered for stress test as an outpatient to follow-up on
this acute heart failure admission, troponin elevation and ECG changes.
HPI: Patient came [facility] yesterday with increased SOB and is now admitted with acute HF and cardiology has been consulted. Patient has a h/o chronic LE edema and he is chronically on Lasix 20 mg PO daily. He also has a history of obstructive sleep
apnea on CPAP and he also uses oxygen at 2 L nasal cannula nightly. He also has a h/o HTN and takes losartan 100 mg daily, Toprol-XL 50 mg daily and hydralazine 75 mg twice daily. He also has a history of paroxysmal atrial fibrillation that was
symptomatic and he was seen by EP and recommended PVI with pulsed field ablation which was performed on 06/04/2024. His procedure went well and he was able to be discharged to home the same day. Patient reports that he had increasing shortness of
breath on Friday into Friday and felt that his abdomen was bloated and full associated with a decreased appetite. He also had increase in his lower extremity edema which is somewhat chronic, but was acutely worse. He did not miss any doses of
his usual medications. He saw his PCP in the office yesterday and was noted that his weight was up 10 pounds from when he had left the hospital and his pulse ox was down to 86% on room air. He also had swelling in his scrotum, but no difficulty
passing urine. He was referred to ER and is now admitted with acute heart failure. He has had some initial symptomatic improvement with IV diuresis, but weight is still up 6 pounds from his dry weight.
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
Subjective
Date of Service: June 10, 2024
He feels better, ongoing increased urination again overnight
Objective
Labs:
06/10/24 09:00
06/10/24 09:00
Labs
Hgb 12.1 g/dL (13.0-18.0) L 06/10/24 09:00
Hct 40.7 % (39.0-52.0) 06/10/24 09:00
Plt Count 184 10^3/uL (130-400) 06/10/24 09:00
Sodium 139 mmol/L (135-145) 06/10/24 09:00
Potassium 4.0 mmol/L (3.5-5.1) 06/10/24 09:00
BUN 30 mg/dl (9-20) H 06/10/24 09:00
Creatinine 0.9 mg/dL (0.7-1.3) 06/10/24 09:00
Glucose 98 mg/dl (70-99) 06/10/24 09:00
Troponins
06/08/24 06/08/24 06/09/24
17:12 23:09 06:54
Troponin I 0.224 H* 0.144 H* D 0.129 H*
Vital Signs and I&O:
Vital Signs
Temp Pulse Resp BP Pulse Ox
97.8 F 49 18 124/64 95
06/10/24 08:17 06/10/24 09:28 06/10/24 08:17 06/10/24 08:17 07/18/24 09:38
Vital Signs
Temp Pulse Resp BP Pulse Ox
97.8 F 49 18 124/64 95
06/10/24 08:17 06/10/24 09:28 06/10/24 08:17 06/10/24 08:17 06/10/24 09:38
Intake & Output
06/08/24 06/09/24 06/10/24 06/11/24
06:59 06:59 06:59 06:59
Intake Total 960 / 960 1890 / 1890
Output Total 2750 / 2750 5525 / 5525 300 / 300
Balance -1790 / -1790 -3635 / -3635 -300 / -300
Physical Exam
Physical Exam
GEN: AAOx3
HEENT: MMM
LUNGS: Wearing oxygen at 46 L NC. No audible wheeze
CV: SR on tele
ABD: ND
EXT: +2 B/L LE edema
NEURO: Gross non-focal
SKIN: No rash
[2024-06-10 11:32] VITALS: BP 131/66
--- NOTE | 2024-06-10 12:08 | W.PN.HOSP.TC ---
Today's Communication/Plan
-
Continue Lasix
Assessment / Plan
Assessment / Plan
Patient is a pleasant 64 yo man with hx atrial fibrillation s/p cardioversion 03/12/24 with return of afib s/p ablation 06/04/24, essential HTN, DM 2, LE swelling on lasix pre-ablation presents to the ER with weight gain and shortness of breath found
to be in heart failure.
Patient has acute on diastolic congestive heart failure
Patient presented with shortness of breath.
BNP level is elevated at 720
Troponin level is 0.129
Continue IV diuresing in form of Lasix 40 mg twice daily
Daily weight.
Strict I's and O's.
Consulted cardiology. Need ischemic workup as outpatient.
CXR shows generalized prominence of bronchovascular markings, possibly accentuated by nonstandard AP portable technique and patient body habitus. The possibility of mild vascular congestion cannot be entirely excluded in the proper clinical setting.
Stable chronic elevation of the right diaphragm with adjacent atelectasis/scarring.
Echo 06/09/2024 shows
Normal left ventricular chamber size. Normal left ventricular systolic
function. Normal regional wall motion. LV ejection fraction is 60-65% by
Tompkins's method of discs. Mild concentric left ventricular hypertrophy. Stage
II diastolic dysfunction suggestive of abnormal relaxation and increased
filling pressures.
Moderately enlarged right ventricular size. Normal right ventricular systolic
function.
Biatrial dilation
Moderate mitral regurgitation.
Aortic sclerosis without stenosis.
Mild to moderate tricuspid regurgitation. Estimated pulmonary artery pressure
of 60-65 mmHg. Assuming a right atrial pressure of 15 mmHg.
06/10
Continue to diurese.
Continue to wean off oxygen
Ambulatory pulse ox before discharge
Acute hypoxic respiratory failure secondary to CHF exacerbation
Improving.
Wean oxygen.
Patient only takes oxygen at night at home.
Ambulatory pulse ox before discharge
Type II WA
Patient denies chest
Seen by cardiology who recommended outpatient stress test
Atrial Fibrillation s/p Ablation 06/04/24
-patient takes Xarelto in AM and took this morning, continue
-HR 50's, no dizziness, continue metoprolol with hold parameters
HLD
-SENIOR WATER/WASTEWATER ENGINEER Statin
Essential Hypertension
-SENIOR WATER/WASTEWATER ENGINEER Losartan, Hydralazine
Hypothyroidism
-SENIOR WATER/WASTEWATER ENGINEER Synthroid
BPH
bladder retention in ER s/p straight cath
-SENIOR WATER/WASTEWATER ENGINEER Flomax, finasteride
-bladder scan and straight cath PRN
CODE STATUS: Full code
DVT prophylaxis: Xarelto
Diet: Cardiac
Anticipated Discharge: Within 24 hours
Subjective/Interval History
-
Date of Service: June 10, 2024
Patient seen and examined at bedside, denies any chest pain, his shortness of breath improved, no abdominal pain, no nausea, no vomiting, no diarrhea or constipation.
Continue to wean oxygen.
Objective Data
-
Labs:
Laboratory Results
06/10/24
09:00
WBC 7.3
Hgb 12.1 L
Hct 40.7
Plt Count 184
Sodium 139
Potassium 4.0
Chloride 94 L
Carbon Dioxide 37 H
BUN 30 H
Creatinine 0.9
Glucose 98
Calcium 9.4
Vital Signs:
Vital Signs
Temp Pulse Resp BP Pulse Ox
97.9 F 66 18 131/66 92
06/10/24 11:32 06/10/24 11:32 06/10/24 11:32 06/10/24 11:32 06/10/24 11:32
I&O
06/09/24 06/10/24 06/11/24
06:59 06:59 06:59
Intake Total 960 / 960 1890 / 1890
Output Total 2750 / 2750 5525 / 5525 300 / 300
Balance -1790 / -1790 -3635 / -3635 -300 / -300
Physical Exam
-
General: Well Developed and No Apparent Distress
HEENT: Normocephalic, Atraumatic and Moist Mucous Membranes
Respiratory: Rales and Rhonchi
Cardiac: Regular Rhythm and S1/S2; Negative Murmur, Rub or Gallop
GI: Soft, Nontender, Nondistended and Normal Bowel Sounds; Negative Organomegaly
Rectal: Deferred by Provider
Musculoskeletal: No Clubbing, No Cyanosis, No Edema, Edema, Right Lower Extrem and Edema, Left Lower Extrem
Skin: Negative Rash
Neuro: AO x 3 and Nonfocal/Grossly Intact
Psych: Calm
[2024-06-10 15:15] VITALS: BP 106/62
--- NOTE | 2024-06-10 16:02 | CM ---
Chart reviewed. Patient is independent of ADLS, lives with his in a [address], 0 [address]AS[address], ambulates with a SPC. Plan is for the patient to return home. CM to follow
[2024-06-10 19:02] VITALS: BP 118/62
[2024-06-10] MEDS: TOPROL XL 50 MG PO (20:09)
[2024-06-10] MEDS: LIORESAL 10 MG PO (20:09)
[2024-06-10 22:27] VITALS: BP 104/60
[2024-06-10] MEDS: FLOMAX 0.4 MG PO (22:27)
--- NOTE | 2024-06-10 23:02 | PTCARENOTE ---
Addendum entered by Jeff Chiu RN 06/10/24 23:08:
SPO2 2L NC 94-95%.pt voiding well, ambulating to bathroom. Pt denies any SOB. Informed to notify RN if any changes, call doe within reach.
Original Note:
Pt received start of shift, HR SR/SB. Reinforced importance of keeping supplemental oxygen on even if pt states they 'feel fine enough without it'. SPO2 82-85% RA.
[2024-06-11] VITALS (9 sets, daily range): BP systolic 88–132; BP diastolic 54–82; O2SAT 88–93; BMI 43.5
[2024-06-11] MEDS: SYNTHROID 25 MCG PO (05:40)
[2024-06-11] MEDS: SYNTHROID 200 MCG PO (05:40)
[2024-06-11 05:57] LABS: Blood Urea Nitrogen 28 mg/dl (9-20); Calcium 9.4 mg/dl (8.4-10.2); Carbon Dioxide 39 mmol/L (22-30); Chloride 92 mmol/L (98-107); Estimated Creatinine Clearance 121 ml/min; Glucose 96 mg/dl (70-99); Magnesium 1.9 mg/dl (1.6-2.3); Potassium 4.1 mmol/L (3.5-5.1); Sodium 139 mmol/L (135-145); eGFR > 60.00
[2024-06-11 06:33] LABS: Hematocrit 43.3 % (39.0-52.0); Hemoglobin 12.7 g/dL (13.0-18.0); Mean Corpuscular Hgb 24.2 pg (27.0-31.0); Mean Corpuscular Volume 82.5 fL (80.0-94.0); Red Blood Cell Count 5.25 10^6/uL (4.70-6.10)
[2024-06-11 06:34] LABS: Mean Corp Hgb Conc. 29.3 g/dL (33.0-37.0); Platelet Count 207 10^3/uL (130-400); Red Cell Dist. Width 18.2 % (11.5-14.5)
[2024-06-11] MEDS: LASIX 40 MG IV ×2 (07:58→15:56)
[2024-06-11] MEDS: TRIAMCINOLONE 0.1% OINTMENT 1 APPLIC TOPICAL (07:59)
[2024-06-11] MEDS: NEURONTIN 1200 MG PO ×2 (07:59→19:52)
[2024-06-11] MEDS: COZAAR 100 MG PO (08:00)
[2024-06-11] MEDS: PROTONIX 40 MG PO (08:00)
[2024-06-11] MEDS: LIPITOR 20 MG PO (08:00)
[2024-06-11] MEDS: APRESOLINE 50 MG PO ×2 (08:00→19:52)
[2024-06-11] MEDS: XARELTO 20 MG PO (08:01)
[2024-06-11] MEDS: JARDIANCE 10 MG PO (08:01)
[2024-06-11] MEDS: PROSCAR 5 MG PO (08:01)
[2024-06-11] MEDS: TOPROL XL 50 MG PO ×2 (08:01→19:52)
[2024-06-11] MEDS: LIORESAL 10 MG PO ×2 (08:01→19:52)
[2024-06-11] MEDS: APRESOLINE 25 MG PO ×2 (08:03→19:52)
--- NOTE | 2024-06-11 09:12 | PTCARENOTE ---
Assumed care of pt from night RN. Pt received awake and alert, Ox3. VSS, CM shows SB 50-60's, POX97% on RA. He denies any pain or discomfort, ambulating in room with cane. FR reviewed. Getting Lasix BID IV, as per JAN.
--- NOTE | 2024-06-11 10:33 | PN.CDI ---
CDI
- -
CDI:
Physician Documentation Request
Admit Date: 06/08/24 20:07
Dear Doctor Christiano,
Patient admitted with acute diastolic CHF.
06/10 PN, 'Type II PA...Seen by cardiology who recommended outpatient stress test.'
06/10 Cardiology note, 'ECG reviewed by me with ST and T wave changes anteriorly, but EF is stable by echo without wall motion abnormality. Will manage as a nonischemic myocardial injury troponin elevation due to recent ablation.
Due to conflicting documentation, please clarify in your note the diagnosis associated with the above findings:
Non-ischemic myocardial injury
Type II PA
Other
Use of terms such as suspected, likely, concern for, or probable (associated with a specific diagnosis that is being evaluated, monitored, or treated as if it exists) are acceptable and can be coded in the inpatient setting, when documented at the
time of discharge.
Thank you,
Micki HARTMAN,RN,CCDS
CDI Specialist
Available via [place] text
Please use your independent medical judgment in providing your response.
--- NOTE | 2024-06-11 12:22 | W.PN.CARDCBS ---
Addendum entered and electronically signed by Lyle Medley MD 06/11/24 16:16:
I saw and examined the patient.
The STOCKROOM SUPERVISOR or PA's note was reviewed and I agree with the note.
Comment: General: Well developed, well nourished in NAD.
Neck: Supple, no JVD, HJR, carotids +2 B/L, no bruits bilaterally.
Heart: Non displaced PMI, RRR, no murmurs, No S3, S4, no rubs.
Lungs: Scattered rhonchi
Extremities: No clubbing, cyanosis or edema bilaterally.
Neuro: Grossly nonfocal, awake, alert and oriented x3.
He is diuresing nicely but remains on oxygen. Will try to wean oxygen off. Consider change to oral Lasix in the next 24 hours. Discussed with patient and at bedside. Remains in sinus rhythm.
Original Note:
Today's Communication / Plan
-
Continue IV diuresis
Continue Toprol and Xarelto
Wean oxygen
Impression / Plan
-
PCP: Dr. Rutherford
Cardiology: Dr. Rodriguez
EP: Dr. Sparks
Impression:
Presented 06/08/2024 with SOB and edema
Acute hypoxic respiratory failure secondary to CHF exacerbation
Acute HFpEF, proBNP 720
Elevated Troponin, peak 0.224
Paroxysmal Afib
s/p PVI with PFA 06/04/24
Moderate MR by echo 06/09/24
HTN with LVH by echo
BRI on CPAP
Obese, BMI 45.2
DM 2
Echo 06/09/24: EF 60 to 65%, stage II diastolic dysfunction, mild concentric LVH, moderately enlarged RV size with normal RV systolic function, moderate MR, aortic sclerosis without stenosis, mild to moderate TR with PAP 60 to 65 mmHg
Plan:
-Presented 06/08/2024 with SOB/edema and found to have acute HFpEF, proBNP 720
-Weight is down 5 lbs overnight and at least and 25 lbs since admission, he was 349 lbs at PCP office 06/08. Talked with patient's by phone 06/09/24 and patient with increased LE edema since about the time of CV 03/12/24 so dry weight is not
clear. Will continue to diurese and follow BMP daily.
-Cont Lasix 40 mg IV BID. He was taking Lasix 20 mg PO daily prior to admission.
-Still requiring oxygen 2 lpm, attempt to wean
-Monitor electrolytes potassium 4.1 and magnesium 1.9.
-Echo showed preserved EF, mild conc LVH and stage II diastolic dysfunction.
-Per review of tele he remains in SR. -Continued with his usual dose of Toprol-XL 50 mg twice daily and Xarelto 20 mg daily.
-Troponin was 0.224 on admission and has trended down thereafter. No complaints of chest pain. ECG reviewed with ST and T wave changes anteriorly, but EF is stable by echo without wall motion abnormality. Will manage as a nonischemic myocardial
injury troponin elevation due to recent ablation and heart failure exacerbation
-His last stress test was a Lexiscan nuclear stress test on 08/08/2014 at which time there was a small fixed inferior segment and apical segment defect consistent with infarction. Consider stress test as an outpatient to follow-up on this acute
heart failure admission, troponin elevation and ECG changes.
HPI: Patient came to [facility] yesterday with increased SOB and is now admitted with acute HF and cardiology has been consulted. Patient has a h/o chronic LE edema and he is chronically on Lasix 20 mg PO daily. He also has a history of obstructive sleep
apnea on CPAP and he also uses oxygen at 2 L nasal cannula nightly. He also has a h/o HTN and takes losartan 100 mg daily, Toprol-XL 50 mg daily and hydralazine 75 mg twice daily. He also has a history of paroxysmal atrial fibrillation that was
symptomatic and he was seen by EP and recommended PVI with pulsed field ablation which was performed on 06/04/2024. His procedure went well and he was able to be discharged to home the same day. Patient reports that he had increasing shortness of
breath on Friday into Friday and felt that his abdomen was bloated and full associated with a decreased appetite. He also had increase in his lower extremity edema which is somewhat chronic, but was acutely worse. He did not miss any doses of
his usual medications. He saw his PCP in the office yesterday and was noted that his weight was up 10 pounds from when he had left the hospital and his pulse ox was down to 86% on room air. He also had swelling in his scrotum, but no difficulty
passing urine. He was referred to ER and is now admitted with acute heart failure. He has had some initial symptomatic improvement with IV diuresis, but weight is still up 6 pounds from his dry weight.
Progress Note - Millinery Department Manager
Subjective
Date of Service: June 11, 2024
Patient seen and examined. at bedside. Feeling significantly better, less SOB
Objective
Labs:
06/11/24 02:21
06/11/24 02:21
Labs
Hgb 12.7 g/dL (13.0-18.0) L 06/11/24 02:21
Hct 43.3 % (39.0-52.0) 06/11/24 02:21
Plt Count 207 10^3/uL (130-400) 06/11/24 02:21
Sodium 139 mmol/L (135-145) 06/11/24 02:21
Potassium 4.1 mmol/L (3.5-5.1) 06/11/24 02:21
BUN 28 mg/dl (9-20) H 06/11/24 02:21
Creatinine 0.9 mg/dL (0.7-1.3) 06/11/24 02:21
Glucose 96 mg/dl (70-99) 06/11/24 02:21
Troponins
06/08/24 06/08/24 06/09/24
17:12 23:09 06:54
Troponin I 0.224 H* 0.144 H* D 0.129 H*
Vital Signs and I&O:
Vital Signs
Temp Pulse Resp BP Pulse Ox
98.0 F 55 18 88/54 92
06/11/24 11:50 06/11/24 12:00 06/11/24 11:50 06/11/24 11:54 06/11/24 11:50
Vital Signs
Temp Pulse Resp BP Pulse Ox
98.0 F 55 18 88/54 92
06/11/24 11:50 06/11/24 12:00 06/11/24 11:50 06/11/24 11:54 06/11/24 11:50
Intake & Output
06/09/24 06/10/24 06/11/24 06/12/24
06:59 06:59 06:59 06:59
Intake Total 960 / 960 1890 / 1890 840 / 840
Output Total 2750 / 2750 5525 / 5525 4700 / 4700
Balance -1790 / -1790 -3635 / -3635 -3860 / -3860
Physical Exam
Physical Exam
GEN: No distress, awake, Ox3
HEENT: supple, anicteric, mmm
LUNGS: CTA, no wheezes/rales
CV: distant heart tones, Reg, S1/S2, 1/6 syst murmur
ABD: soft, BS+, NT/ND
EXT: Trace to +1 LE edema, skin changes c/w chronic venous stasis
NEURO: Gross non-focal
SKIN: No rash, warm, dry
--- NOTE | 2024-06-11 14:43 | RESPNOTE ---
patient was ambulated 150 feet on room air and saturation decreased to 85%, patient was stopped and placed on 2 liters, sao2=95% , while walking 150 feet on 2 liters sao2 dropped to 87%, patient was left on 2 liters in room at rest and saturation
increased to 95%
--- NOTE | 2024-06-11 15:38 | W.PN.HOSP.TC ---
Addendum entered and electronically signed by Paz Alvarado MD 06/11/24 15:41:
Non-ischemic myocardial injury
Original Note:
Today's Communication/Plan
-
Cont IV LAsix
Assessment / Plan
Assessment / Plan
Patient is a pleasant 64 yo man with hx atrial fibrillation s/p cardioversion 03/12/24 with return of afib s/p ablation 06/04/24, essential HTN, DM 2, LE swelling on lasix pre-ablation presents to the ER with weight gain and shortness of breath found
to be in heart failure.
Patient has acute on diastolic congestive heart failure
Patient presented with shortness of breath.
BNP level is elevated at 720
Troponin level is 0.129
Continue IV diuresing in form of Lasix 40 mg twice daily
Daily weight.
Strict I's and O's.
Consulted cardiology. Need ischemic workup as outpatient.
CXR shows generalized prominence of bronchovascular markings, possibly accentuated by nonstandard AP portable technique and patient body habitus. The possibility of mild vascular congestion cannot be entirely excluded in the proper clinical setting.
Stable chronic elevation of the right diaphragm with adjacent atelectasis/scarring.
Echo 06/09/2024 shows
Normal left ventricular chamber size. Normal left ventricular systolic
function. Normal regional wall motion. LV ejection fraction is 60-65% by
Tompkins's method of discs. Mild concentric left ventricular hypertrophy. Stage
II diastolic dysfunction suggestive of abnormal relaxation and increased
filling pressures.
Moderately enlarged right ventricular size. Normal right ventricular systolic
function.
Biatrial dilation
Moderate mitral regurgitation.
Aortic sclerosis without stenosis.
Mild to moderate tricuspid regurgitation. Estimated pulmonary artery pressure
of 60-65 mmHg. Assuming a right atrial pressure of 15 mmHg.
06/10
Continue to diurese.
Continue to wean off oxygen
Ambulatory pulse ox before discharge
06/11
dropped oxygen sat to 85% with ambulation, needs more IV duiretics.
Acute hypoxic respiratory failure secondary to CHF exacerbation
Improving.
Wean oxygen.
Patient only takes oxygen at night at home.
Ambulatory pulse ox before discharge
Type II GA
Patient denies chest
Seen by cardiology who recommended outpatient stress test
Atrial Fibrillation s/p Ablation 06/04/24
-patient takes Xarelto in AM and took this morning, continue
-HR 50's, no dizziness, continue metoprolol with hold parameters
HLD
-METAL TRIM ERECTOR Statin
Essential Hypertension
-METAL TRIM ERECTOR Losartan, Hydralazine
Hypothyroidism
-METAL TRIM ERECTOR Synthroid
BPH
bladder retention in ER s/p straight cath
-METAL TRIM ERECTOR Flomax, finasteride
-bladder scan and straight cath PRN
CODE STATUS: Full code
DVT prophylaxis: Xarelto
Diet: Cardiac
Anticipated Discharge: > 48 hours
Subjective/Interval History
-
Date of Service: June 11, 2024
Patient seen and examined at bedside, denies any chest pain, his shortness of breath improved, no abdominal pain, no nausea, no vomiting, no diarrhea or constipation.
Continue to wean oxygen (dropped oxygen sat with ambulation)
Objective Data
-
Labs:
Laboratory Results
06/11/24
02:21
WBC 8.0
Hgb 12.7 L
Hct 43.3
Plt Count 207
Sodium 139
Potassium 4.1
Chloride 92 L
Carbon Dioxide 39 H
BUN 28 H
Creatinine 0.9
Glucose 96
Calcium 9.4
Vital Signs:
Vital Signs
Temp Pulse Resp BP Pulse Ox
98 F 59 18 104/55 94
06/11/24 15:21 06/11/24 15:25 06/11/24 15:21 06/11/24 15:25 06/11/24 15:21
I&O
06/10/24 06/11/24 06/12/24
06:59 06:59 06:59
Intake Total 1890 / 1890 840 / 840
Output Total 5525 / 5525 4700 / 4700
Balance -3635 / -3635 -3860 / -3860
Physical Exam
-
General: Well Developed and No Apparent Distress
HEENT: Normocephalic, Atraumatic and Moist Mucous Membranes
Respiratory: Rales and Rhonchi
Cardiac: Regular Rhythm and S1/S2; Negative Murmur, Rub or Gallop
GI: Soft, Nontender, Nondistended and Normal Bowel Sounds; Negative Organomegaly
Rectal: Deferred by Provider
Musculoskeletal: No Clubbing, No Cyanosis, No Edema, Edema, Right Lower Extrem and Edema, Left Lower Extrem
Skin: Negative Rash
Neuro: AO x 3 and Nonfocal/Grossly Intact
Psych: Calm
[2024-06-11] MEDS: FLOMAX 0.4 MG PO (21:39)
[2024-06-12 04:57] VITALS: BP 117/70
[2024-06-12 05:23] LABS: Hematocrit 41.4 % (39.0-52.0); Hemoglobin 12.1 g/dL (13.0-18.0); Mean Corp Hgb Conc. 29.2 g/dL (33.0-37.0); Mean Corpuscular Hgb 24.2 pg (27.0-31.0); Mean Platelet Volume 10.1 fL (7.4-10.4); Platelet Count 193 10^3/uL (130-400); Red Blood Cell Count 4.99 10^6/uL (4.70-6.10); Red Cell Dist. Width 17.8 % (11.5-14.5); White Blood Cell Count 8.3 10^3/uL (4.8-10.8)
[2024-06-12 05:53] LABS: Blood Urea Nitrogen 28 mg/dl (9-20); Calcium 9.2 mg/dl (8.4-10.2); Chloride 91 mmol/L (98-107); Estimated Creatinine Clearance 109 ml/min; Glucose 92 mg/dl (70-99); Magnesium 1.9 mg/dl (1.6-2.3); Potassium 4.1 mmol/L (3.5-5.1); Sodium 137 mmol/L (135-145); eGFR > 60.00
[2024-06-12 06:03] LABS: Carbon Dioxide 37 mmol/L (22-30)
[2024-06-12 06:28] VITALS: BMI 43.5
[2024-06-12] MEDS: SYNTHROID 200 MCG PO (06:31)
[2024-06-12] MEDS: SYNTHROID 25 MCG PO (06:31)
[2024-06-12 07:38] VITALS: BP 133/73
[2024-06-12 08:11] LABS: Glucose - Point of Care 108 mg/dl (70-99)
--- NOTE | 2024-06-12 08:24 | W.PN.CARDCBS ---
Addendum entered and electronically signed by Lyle Medley MD 06/12/24 08:46:
I saw and examined the patient.
The NUCLEAR PHARMACIST or PA's note was reviewed and I agree with the note.
Comment: General: Well developed, well nourished in NAD.
Neck: Supple, no JVD, HJR, carotids +2 B/L, no bruits bilaterally.
Heart: Non displaced PMI, RRR, no murmurs, No S3, S4, no rubs.
Lungs: Scattered rhonchi
Extremities: No clubbing, cyanosis or edema bilaterally.
Neuro: Grossly nonfocal, awake, alert and oriented x3.
He appears to have reached dry weight. He is able to ambulate without issues but sats did go down to 87%. He already has home oxygen at night. Hopefully this will improve with further outpatient diuresis. Weight is down almost 25 pounds. Stable
cardiology status for discharge. Changed to Lasix 40 mg p.o. twice daily. Follow-up arranged. Discussed with primary service
Original Note:
Today's Communication / Plan
-
Transition to PO lasix 40mg BID
BMP in 1 week
Follow up arranged
Impression / Plan
-
PCP: Dr. Rutherford
Cardiology: Dr. Rodriguez
EP: Dr. Sparks
Impression:
Presented 06/08/2024 with SOB and edema
Acute hypoxic respiratory failure secondary to CHF exacerbation
Acute HFpEF, proBNP 720
Elevated Troponin, peak 0.224
Paroxysmal Afib
s/p PVI with PFA 06/04/24
Moderate MR by echo 06/09/24
HTN with LVH by echo
BRI on CPAP
Obese, BMI 45.2
DM 2
Echo 06/09/24: EF 60 to 65%, stage II diastolic dysfunction, mild concentric LVH, moderately enlarged RV size with normal RV systolic function, moderate MR, aortic sclerosis without stenosis, mild to moderate TR with PAP 60 to 65 mmHg
Plan:
-Presented 06/08/2024 with SOB/edema and found to have acute HFpEF, proBNP 720
-Weight is down at least and 25 lbs this admission, he was 349 lbs at PCP office 06/08. Weight stable overnight, plateauing at 320lbs.
-Creat overall stable at 1.0. Will transition to PO lasix 40mg BID.
-Check BMP in 1 week.
-K and mag stable.
-Echo showed preserved EF, mild conc LVH and stage II diastolic dysfunction.
-Remains in SR following PVI 06/04/2024. Continue Toprol-XL 50 mg BID and Xarelto 20 mg daily.
-Troponin was 0.224 on admission and has trended down thereafter. No complaints of chest pain. Will manage as a nonischemic myocardial injury troponin elevation due to recent ablation and heart failure exacerbation
-His last stress test was a Lexiscan nuclear stress test on 08/08/2014 at which time there was a small fixed inferior segment and apical segment defect consistent with infarction. Consider stress test as an outpatient to follow-up on this acute
heart failure admission, troponin elevation and ECG changes.
-Follow up arranged.
HPI: Patient came to [facility] yesterday with increased SOB and is now admitted with acute HF and cardiology has been consulted. Patient has a h/o chronic LE edema and he is chronically on Lasix 20 mg PO daily. He also has a history of obstructive sleep
apnea on CPAP and he also uses oxygen at 2 L nasal cannula nightly. He also has a h/o HTN and takes losartan 100 mg daily, Toprol-XL 50 mg daily and hydralazine 75 mg twice daily. He also has a history of paroxysmal atrial fibrillation that was
symptomatic and he was seen by EP and recommended PVI with pulsed field ablation which was performed on 06/04/2024. His procedure went well and he was able to be discharged to home the same day. Patient reports that he had increasing shortness of
breath on Friday into Friday and felt that his abdomen was bloated and full associated with a decreased appetite. He also had increase in his lower extremity edema which is somewhat chronic, but was acutely worse. He did not miss any doses of
his usual medications. He saw his PCP in the office yesterday and was noted that his weight was up 10 pounds from when he had left the hospital and his pulse ox was down to 86% on room air. He also had swelling in his scrotum, but no difficulty
passing urine. He was referred to ER and is now admitted with acute heart failure. He has had some initial symptomatic improvement with IV diuresis, but weight is still up 6 pounds from his dry weight.
Progress Note - Securities Attorney
Subjective
Date of Service: June 12, 2024
Feeling better. No SOB.
Objective
Labs:
06/12/24 05:06
06/12/24 05:06
Labs
Hgb 12.1 g/dL (13.0-18.0) L 06/12/24 05:06
Hct 41.4 % (39.0-52.0) 06/12/24 05:06
Plt Count 193 10^3/uL (130-400) 06/12/24 05:06
Sodium 137 mmol/L (135-145) 06/12/24 05:06
Potassium 4.1 mmol/L (3.5-5.1) 06/12/24 05:06
BUN 28 mg/dl (9-20) H 06/12/24 05:06
Creatinine 1.0 mg/dL (0.7-1.3) 06/12/24 05:06
Glucose 92 mg/dl (70-99) 06/12/24 05:06
Vital Signs and I&O:
Vital Signs
Temp Pulse Resp BP Pulse Ox
98.4 F 58 18 117/70 91
06/12/24 07:33 06/12/24 07:33 06/12/24 07:33 06/12/24 04:57 06/12/24 07:33
Vital Signs
Temp Pulse Resp BP Pulse Ox
98.4 F 58 18 117/70 91
06/12/24 07:33 06/12/24 07:33 06/12/24 07:33 06/12/24 04:57 06/12/24 07:33
Intake & Output
06/10/24 06/11/24 06/12/24 06/13/24
06:59 06:59 06:59 06:59
Intake Total 1890 / 1890 840 / 840 1200 / 1200
Output Total 5525 / 5525 4700 / 4700 2750 / 2750 600 / 600
Balance -3635 / -3635 -3860 / -3860 -1550 / -1550 -600 / -600
Physical Exam
Physical Exam
GEN: No distress, awake, alert, oriented x3
HEENT: supple, anicteric, mmm
LUNGS: CTA b/l, no wheezes/rales
CV: distant heart tones, Reg, S1/S2, 1/6 syst murmur
EXT: Trace to +1 LE edema, skin changes c/w chronic venous stasis
NEURO: Gross non-focal
SKIN: No rash, warm, dry
[2024-06-12] MEDS: NEURONTIN 1200 MG PO (08:29)
[2024-06-12] MEDS: XARELTO 20 MG PO (08:29)
[2024-06-12] MEDS: LASIX 40 MG IV (08:29)
[2024-06-12] MEDS: JARDIANCE 10 MG PO (08:29)
[2024-06-12] MEDS: APRESOLINE 50 MG PO (08:29)
[2024-06-12] MEDS: PROSCAR 5 MG PO (08:30)
[2024-06-12] MEDS: LIORESAL 10 MG PO (08:30)
[2024-06-12] MEDS: LIPITOR 20 MG PO (08:30)
[2024-06-12] MEDS: APRESOLINE 25 MG PO (08:30)
[2024-06-12] MEDS: PROTONIX 40 MG PO (08:30)
[2024-06-12] MEDS: TOPROL XL 50 MG PO (08:30)
[2024-06-12] MEDS: COZAAR 100 MG PO (08:30)
--- NOTE | 2024-06-12 11:41 | W.PN.HOSP.TC ---
Today's Communication/Plan
-
Case management for O2 set up
Lasix twice daily
Assessment / Plan
Assessment / Plan
Patient is a pleasant 64 yo man with hx atrial fibrillation s/p cardioversion 03/12/24 with return of afib s/p ablation 06/04/24, essential HTN, DM 2, LE swelling on lasix pre-ablation presents to the ER with weight gain and shortness of breath found
to be in heart failure.
Patient has acute on diastolic congestive heart failure
Patient presented with shortness of breath.
BNP level is elevated at 720
Troponin level is 0.129
Continue IV diuresing in form of Lasix 40 mg twice daily and plans to transition to p.o. 40 mg Lasix twice daily.
Daily weight.
Strict I's and O's.
Consulted cardiology. Need ischemic workup as outpatient.
CXR shows generalized prominence of bronchovascular markings, possibly accentuated by nonstandard AP portable technique and patient body habitus. The possibility of mild vascular congestion cannot be entirely excluded in the proper clinical setting.
Stable chronic elevation of the right diaphragm with adjacent atelectasis/scarring.
Echo 06/09/2024 shows
Normal left ventricular chamber size. Normal left ventricular systolic
function. Normal regional wall motion. LV ejection fraction is 60-65% by
Tompkins's method of discs. Mild concentric left ventricular hypertrophy. Stage
II diastolic dysfunction suggestive of abnormal relaxation and increased
filling pressures.
Moderately enlarged right ventricular size. Normal right ventricular systolic
function.
Biatrial dilation
Moderate mitral regurgitation.
Aortic sclerosis without stenosis.
Mild to moderate tricuspid regurgitation. Estimated pulmonary artery pressure
of 60-65 mmHg. Assuming a right atrial pressure of 15 mmHg.
Acute hypoxic respiratory failure secondary to CHF exacerbation
Improving.
Wean oxygen.
Patient only takes oxygen at night at home.
Patient is in need of oxygen on exertion due to pulse oximetry 85% on room air with exertion.
Patient was placed on 2L O2 via nasal cannula with saturation of 95%. Oxygen will help to improve hypoxemia.
Patient is mobile within the home. Albuterol therapy and intravenous Lasix has been discussed and is ineffective in treating hypoxemia-related symptoms.
Oxygen will improve the patient's symptoms.
Type II RI
Patient denies chest
Seen by cardiology who recommended outpatient stress test
Atrial Fibrillation s/p Ablation 06/04/24
-patient takes Xarelto in AM and took this morning, continue
-HR 50's, no dizziness, continue metoprolol with hold parameters
HLD
-PERSONAL HEALTH COACH Statin
Essential Hypertension
-PERSONAL HEALTH COACH Losartan, Hydralazine
Hypothyroidism
-PERSONAL HEALTH COACH Synthroid
BPH
bladder retention in ER s/p straight cath
-PERSONAL HEALTH COACH Flomax, finasteride
-bladder scan and straight cath PRN.
BRI on CPAP
Uses 2 L of oxygen at bedtime
Will now need to use oxygen with exertion and at rest if O2 sats less than 88
CODE STATUS: Full code
DVT prophylaxis: Xarelto
Diet: Cardiac
Discussed with cardiology okay for discharge
More than 30 minutes spent in discharge including
Final examination of the patient
Summarizing hospital stay
Instructions for continuing care to all relevant caregivers
Preparation of discharge records, prescriptions, and referral forms
Total time spent (in minutes): 52
Anticipated Discharge: Today
Subjective/Interval History
-
Date of Service: June 12, 2024
feeling better
passing urine
Objective Data
-
Labs:
Laboratory Results
06/12/24
05:06
WBC 8.3
Hgb 12.1 L
Hct 41.4
Plt Count 193
Sodium 137
Potassium 4.1
Chloride 91 L
Carbon Dioxide 37 H
BUN 28 H
Creatinine 1.0
Glucose 92
Calcium 9.2
Vital Signs:
Vital Signs
Temp Pulse Resp BP Pulse Ox
98.4 F 62 18 133/73 91
06/12/24 07:33 06/12/24 10:00 06/12/24 07:33 06/12/24 08:29 06/12/24 07:33
I&O
06/11/24 06/12/24 06/13/24
06:59 06:59 06:59
Intake Total 840 / 840 1200 / 1200
Output Total 4700 / 4700 2750 / 2750 600 / 600
Balance -3860 / -3860 -1550 / -1550 -600 / -600
Physical Exam
-
General: Well Developed and No Apparent Distress
HEENT: Normocephalic, Atraumatic and Moist Mucous Membranes
Respiratory: Clear to Auscultation
Cardiac: Regular Rhythm and S1/S2; Negative Murmur, Rub or Gallop
GI: Soft, Nontender, Nondistended and Normal Bowel Sounds; Negative Organomegaly
Rectal: Deferred by Provider
Musculoskeletal: No Clubbing, No Cyanosis, No Edema, Edema, Right Lower Extrem and Edema, Left Lower Extrem
Skin: Negative Rash
Neuro: AO x 3 and Nonfocal/Grossly Intact
Psych: Calm
--- NOTE | 2024-06-12 11:50 | W.DCSUMMARY ---
Discharge Summary
Discharge Data
Date of Admission: 06/08/24
Date of Discharge: 06/12/24
-
Pending Results: No
Hospital Course
64 yo man with hx atrial fibrillation s/p cardioversion 03/12/24 with return of afib s/p ablation 06/04/24, essential HTN, DM 2, LE swelling on lasix pre-ablation presents to the ER with weight gain and shortness of breath found to be in heart
failure. Patient presented with shortness of breath. BNP level is elevated at 720 . Continue IV diuresing in form of Lasix 40 mg twice daily. CXR shows generalized prominence of bronchovascular markings, possibly accentuated by nonstandard AP
portable technique and patient body habitus. The possibility of mild vascular congestion cannot be entirely excluded in the proper clinical setting.
Stable chronic elevation of the right diaphragm with adjacent atelectasis/scarring. Normal left ventricular chamber size. Normal left ventricular systolic function. Normal regional wall motion. LV ejection fraction is 60-65% by Tompkins's method
of discs. Mild concentric left ventricular hypertrophy. Stage II diastolic dysfunction suggestive of abnormal relaxation and increased filling pressures. Moderately enlarged right ventricular size. Normal right ventricular systolic function.
Biatrial dilation Moderate mitral regurgitation. Aortic sclerosis without stenosis. Mild to moderate tricuspid regurgitation. Estimated pulmonary artery pressure of 60-65 mmHg. Assuming a right atrial pressure of 15 mmHg. Cardiology was
consulted. Patient with significant improvement in symptoms. Patient qualified for home oxygenation during daytime. Her outpatient home dose Lasix was increased from 25 twice daily to 40 mg twice daily on discharge. Patient be discharged home
with outpatient cardiology follow-up.
Discharge Plan
-
Patient Disposition: Home (Routine Discharge)
Discharge Diagnosis/Procedures: Acute HFpEF
Elevated troponin
Condition: Fair
Diet: 2 Gram Sodium and Restrict fluids to 48 oz
Blood Work: BMP in 1 week
Specialty Instructions: Weigh Daily- Call MD for wt gain/loss 3 lbs overnight/5 lbs in 1 week
Instructions: *DCA Heart Failure Instructions
Referrals:
Brianna Rutherford MD [Family Provider] -
Pedro Pablo Rodriguez MD [Active] - 06/23/24 10:40 am (You have a follow up visit with Dr. Rodriguez at the [facility]. Please call with questions. )
Prescriptions:
New
furosemide 40 mg Tablet
40 mg PO BID AT 0800,1600 30 Days Qty: 60 0RF
Continued
metoprolol succinate 50 MG tablet extended release 24 hr
50 mg PO BID
losartan 100 MG tablet
100 mg PO DAILY
gabapentin 400 MG capsule
1,200 mg PO BID
Patient Comments:
06/08/2024: Prescribed as 800mg po TID
Skyrizi 150 mg/mL Syringe
150 mg SC [id number] Qty: 0
hydralazine 25 mg Tablet
25 mg PO BID
levothyroxine [Synthroid] 25 mcg Tablet
25 mcg PO DAILY
levothyroxine [Synthroid] 200 mcg Tablet
200 mcg PO DAILY
tamsulosin 0.4 mg Capsule
0.4 mg PO HS
baclofen 10 mg Tablet
10 mg PO BID
pantoprazole 40 mg Tablet,Delayed Release (Dr/Ec)
40 mg PO DAILY
finasteride 5 mg Tablet
5 mg PO DAILY
Xarelto 20 mg Tablet
20 mg PO DAILY
Jardiance 10 mg Tablet
10 mg PO DAILY
triamcinolone acetonide 0.1 % Ointment
1 applic TOPICAL DAILYPRN PRN (Reason: psorasis)
atorvastatin 20 mg Tablet
20 mg PO DAILY
cholecalciferol (vitamin D3) 25 mcg (1,000 unit) Tablet
25 mcg PO DAILYPRN PRN (Reason: supplement)
therapeutic multivitamin Tablet
1 tab PO DAILY
hydralazine 50 mg tablet
50 mg PO BID
Discontinued
furosemide 20 MG tablet
20 mg PO DAILY
Discharge Orders:
Discharge Patient (As Directed); Ordered 06/12/24
Ordered By: Austin Nieto
Care Plan Goals
Care Plan Goals:
Problem: Readiness for enhanced knowledge related to diagnosis and treatment plan
Goal: Understand your diagnosis and treatment plan needs, including medications if applicable.
Instructions: Know your diagnosis, underlying causes and treatment plan options, including medications if applicable. Consult with your health care team to learn about your diagnosis and treatment plan, including medications if applicable.
Discharge Date and Time
Discharge Date/Time: 06/12/24 14:04
Print Language: [place]
[2024-06-12 11:55] VITALS: BP 90/52
--- NOTE | 2024-06-12 13:59 | PTCARENOTE ---
06/12/2024 1330 Received patient this AM in bed, VSS, NSR-SB with 1st degree heart block. No complaints. Pt on room air pulse ox 91-92%. Pt independent in room, pt out of bed in chair. Order received for discharge to home. Pt and spoke with CM
regarding Home O2 needs. All things were set up. Pt wears CPAP at home/has concentrator. Received discharge order to home per Md. Reviewed discharge instructions, medications, follow up care, BMP needed prior to Md appt, daily weights and fluid
restriction. All questions were answered, support given, IV and Telem pack removed. PCT escorted pt in wheelchair out to car.
== END 2024-06-12 14:04 | disposition home or self-care (01) | DRG 291 ==
LOC: IVU 20:07
PROVIDERS: General Practice; Nurse Practitioner Gerontology; Physician Assistant; ADMITTING PHYSICIAN Student in an Organized Health Care Education/Training Program; ATTENDING PHYSICIAN Hospitalist; EMERGENCY PHYSICIAN Emergency Medicine; FAMILY PHYSICIAN Family Medicine; OTHER PHYSICIAN Internal Medicine Cardiovascular Disease
PROC: 5A09357 Assistance with Respiratory Ventilation, Less than 24 Consecutive Hours, Continuous Positive Airway Pressure (ICD-10-PCS; 2024-06-08)
DX: I11.0 Hypertensive heart disease with heart failure (principal); I50.31 Acute diastolic (congestive) heart failure; J96.01 Acute respiratory failure with hypoxia; Z68.42 Body mass index [BMI] 45.0-49.9, adult; E89.0 Postprocedural hypothyroidism; E78.00 Pure hypercholesterolemia, unspecified; L40.8 Other psoriasis; I48.0 Paroxysmal atrial fibrillation; E11.9 Type 2 diabetes mellitus without complications; N40.1 Benign prostatic hyperplasia with lower urinary tract symptoms; I5A Non-ischemic myocardial injury (non-traumatic); I27.20 Pulmonary hypertension, unspecified; R33.8 Other retention of urine; G47.33 Obstructive sleep apnea (adult) (pediatric); E66.9 Obesity, unspecified; K86.89 Other specified diseases of pancreas; I08.3 Combined rheumatic disorders of mitral, aortic and tricuspid valves; Z88.1 Allergy status to other antibiotic agents; Z91.040 Latex allergy status; Z79.890 Hormone replacement therapy; Z79.01 Long term (current) use of anticoagulants; Z87.891 Personal history of nicotine dependence
CPT/HCPCS: 71045; 80048; 80053; 80061; 81003; 81015; 82962; 83735; 83880; 84439; 84443; 84484; 85025; 85027; 93005; 93306; 94660; 94761; 96374; 99285; Q9950

== ENCOUNTER → 2024-09-17 09:02 | Outpatient (REF) | payer MEDICARE, BC, SELFPAY | LOC: RAD 09:02 | PROVIDERS: ATTENDING PHYSICIAN Family Medicine | DX: M84.48XA Pathological fracture, other site, initial encounter for fracture (principal); M81.0 Age-related osteoporosis without current pathological fracture | CPT/HCPCS: 77080 ==

== ENCOUNTER → 2025-02-09 09:30 | Outpatient (REF) | payer MEDICARE, BC, SELFPAY | LOC: HWRAD 09:30 | PROVIDERS: ATTENDING PHYSICIAN Nurse Practitioner; FAMILY PHYSICIAN Family Medicine | DX: K74.69 Other cirrhosis of liver (principal) | CPT/HCPCS: 76700 ==

== ENCOUNTER 2025-06-03 06:17 | Day surgery (SDC) | payer MEDICARE, BC, SELFPAY ==
[2025-06-03 08:46] VITALS: BMI 19.7
[2025-06-03 08:47] VITALS: BMI 19.7
[2025-06-03 09:05] VITALS: BP 113/59
[2025-06-03 10:19] VITALS: BP 104/60
[2025-06-03 10:30] VITALS: BP 105/54
[2025-06-03 10:36] VITALS: BP 116/52
[2025-06-06 10:22] LABS: Glucose - Point of Care 132 mg/dl (70-99)
== END 2025-06-03 10:50 | disposition home or self-care (01) ==
LOC: SDS 06:17
PROVIDERS: ATTENDING PHYSICIAN Internal Medicine Gastroenterology
DX: K63.5 Polyp of colon (principal); K57.30 Diverticulosis of large intestine without perforation or abscess without bleeding; D50.0 Iron deficiency anemia secondary to blood loss (chronic); K62.89 Other specified diseases of anus and rectum; K64.8 Other hemorrhoids; K29.70 Gastritis, unspecified, without bleeding; K22.89 Other specified disease of esophagus; K74.60 Unspecified cirrhosis of liver; K76.6 Portal hypertension; Q40.2 Other specified congenital malformations of stomach; K31.89 Other diseases of stomach and duodenum; R12 Heartburn
CPT/HCPCS: 45380; 43239; 82962; 88305; 88342

== ENCOUNTER → 2025-07-19 12:49 | Outpatient (REF) | payer MEDICARE, BC, SELFPAY | LOC: WOUND 12:49 | PROVIDERS: ATTENDING PHYSICIAN Surgery; FAMILY PHYSICIAN Family Medicine | DX: L97.212 Non-pressure chronic ulcer of right calf with fat layer exposed (principal); I73.9 Peripheral vascular disease, unspecified; I87.2 Venous insufficiency (chronic) (peripheral); E11.29 Type 2 diabetes mellitus with other diabetic kidney complication; R23.0 Cyanosis; L40.9 Psoriasis, unspecified; I50.30 Unspecified diastolic (congestive) heart failure; G62.9 Polyneuropathy, unspecified; I48.0 Paroxysmal atrial fibrillation | CPT/HCPCS: 11042; 99204 ==

== ENCOUNTER → 2025-08-02 13:26 | Outpatient (REF) | payer MEDICARE, BC, SELFPAY | LOC: WOUND 13:26 | PROVIDERS: ATTENDING PHYSICIAN Surgery | DX: L97.212 Non-pressure chronic ulcer of right calf with fat layer exposed (principal); I73.9 Peripheral vascular disease, unspecified; I87.2 Venous insufficiency (chronic) (peripheral); E11.29 Type 2 diabetes mellitus with other diabetic kidney complication; R23.0 Cyanosis; L40.9 Psoriasis, unspecified; I50.30 Unspecified diastolic (congestive) heart failure; G62.9 Polyneuropathy, unspecified; I48.0 Paroxysmal atrial fibrillation | CPT/HCPCS: 11042 ==

== ENCOUNTER → 2025-08-04 13:26 | Outpatient (REF) | payer MEDICARE, BC, SELFPAY | LOC: RAD 13:26 | PROVIDERS: ATTENDING PHYSICIAN Surgery; FAMILY PHYSICIAN Family Medicine | DX: L97.212 Non-pressure chronic ulcer of right calf with fat layer exposed (principal); I87.2 Venous insufficiency (chronic) (peripheral); I73.9 Peripheral vascular disease, unspecified | CPT/HCPCS: 93922; 93971 ==

== ENCOUNTER → 2025-08-15 07:50 | Outpatient (REF) | payer MEDICARE, BC, SELFPAY | LOC: WOUND 07:50 | PROVIDERS: ATTENDING PHYSICIAN Surgery; FAMILY PHYSICIAN Family Medicine | DX: L97.212 Non-pressure chronic ulcer of right calf with fat layer exposed (principal); I87.2 Venous insufficiency (chronic) (peripheral); E11.29 Type 2 diabetes mellitus with other diabetic kidney complication; R23.0 Cyanosis; L40.9 Psoriasis, unspecified; I50.30 Unspecified diastolic (congestive) heart failure; G62.9 Polyneuropathy, unspecified; I48.0 Paroxysmal atrial fibrillation | CPT/HCPCS: 11042 ==

== ENCOUNTER → 2025-08-22 09:52 | Outpatient (REF) | payer MEDICARE, BC, SELFPAY | LOC: WOUND 09:52 | PROVIDERS: ATTENDING PHYSICIAN Surgery; FAMILY PHYSICIAN Family Medicine | DX: L97.212 Non-pressure chronic ulcer of right calf with fat layer exposed (principal); I87.2 Venous insufficiency (chronic) (peripheral); E11.29 Type 2 diabetes mellitus with other diabetic kidney complication; R23.0 Cyanosis; L40.9 Psoriasis, unspecified; I50.30 Unspecified diastolic (congestive) heart failure; G62.9 Polyneuropathy, unspecified; I48.0 Paroxysmal atrial fibrillation | CPT/HCPCS: 99213 ==

== ENCOUNTER → 2025-08-29 09:53 | Outpatient (REF) | payer MEDICARE, BC, SELFPAY | LOC: WOUND 09:53 | PROVIDERS: ATTENDING PHYSICIAN Surgery; FAMILY PHYSICIAN Family Medicine | DX: L97.212 Non-pressure chronic ulcer of right calf with fat layer exposed (principal); L03.115 Cellulitis of right lower limb; R23.0 Cyanosis; I87.2 Venous insufficiency (chronic) (peripheral); E11.29 Type 2 diabetes mellitus with other diabetic kidney complication; L40.9 Psoriasis, unspecified; I50.30 Unspecified diastolic (congestive) heart failure | CPT/HCPCS: 99214 ==

== ENCOUNTER → 2025-09-05 09:53 | Outpatient (REF) | payer MEDICARE, BC, SELFPAY | LOC: WOUND 09:53 | PROVIDERS: ATTENDING PHYSICIAN Surgery; FAMILY PHYSICIAN Family Medicine | DX: L03.115 Cellulitis of right lower limb (principal); R23.0 Cyanosis; I87.2 Venous insufficiency (chronic) (peripheral); E11.29 Type 2 diabetes mellitus with other diabetic kidney complication; L40.9 Psoriasis, unspecified; I50.30 Unspecified diastolic (congestive) heart failure; G62.9 Polyneuropathy, unspecified; I48.0 Paroxysmal atrial fibrillation | CPT/HCPCS: 11042 ==

== ENCOUNTER → 2025-09-13 09:39 | Outpatient (REF) | payer MEDICARE, BC, SELFPAY | LOC: WOUND 09:39 | PROVIDERS: ATTENDING PHYSICIAN Surgery | DX: L97.212 Non-pressure chronic ulcer of right calf with fat layer exposed (principal); L03.115 Cellulitis of right lower limb; R23.0 Cyanosis; I87.2 Venous insufficiency (chronic) (peripheral); E11.29 Type 2 diabetes mellitus with other diabetic kidney complication; L40.9 Psoriasis, unspecified; I50.30 Unspecified diastolic (congestive) heart failure; G62.9 Polyneuropathy, unspecified; I48.0 Paroxysmal atrial fibrillation | CPT/HCPCS: 11042 ==

== ENCOUNTER → 2025-09-19 13:25 | Outpatient (REF) | payer MEDICARE, BC, SELFPAY | LOC: WOUND 13:25 | PROVIDERS: ATTENDING PHYSICIAN Surgery | DX: L97.212 Non-pressure chronic ulcer of right calf with fat layer exposed (principal); L03.115 Cellulitis of right lower limb; R23.0 Cyanosis; I87.2 Venous insufficiency (chronic) (peripheral); E11.29 Type 2 diabetes mellitus with other diabetic kidney complication; L40.9 Psoriasis, unspecified; I50.30 Unspecified diastolic (congestive) heart failure; G62.9 Polyneuropathy, unspecified; I48.0 Paroxysmal atrial fibrillation | CPT/HCPCS: 99213 ==

== ENCOUNTER → 2025-09-21 08:02 | Outpatient (REF) | payer MEDICARE, BC, SELFPAY | LOC: HWEVLT 08:02 | PROVIDERS: ATTENDING PHYSICIAN Radiology Vascular & Interventional Radiology | DX: I83.891 Varicose veins of right lower extremity with other complications (principal) | CPT/HCPCS: 36478; C1769 ==

== ENCOUNTER → 2025-09-30 10:47 | Outpatient (REF) | payer MEDICARE, BC, SELFPAY | LOC: WOUND 10:47 | PROVIDERS: ATTENDING PHYSICIAN Surgery; FAMILY PHYSICIAN Family Medicine | DX: L97.212 Non-pressure chronic ulcer of right calf with fat layer exposed (principal); L03.115 Cellulitis of right lower limb; R23.0 Cyanosis; I87.2 Venous insufficiency (chronic) (peripheral); E11.29 Type 2 diabetes mellitus with other diabetic kidney complication; L40.9 Psoriasis, unspecified; I50.30 Unspecified diastolic (congestive) heart failure; G62.9 Polyneuropathy, unspecified; I48.0 Paroxysmal atrial fibrillation | CPT/HCPCS: 11042 ==

== ENCOUNTER → 2025-10-05 11:27 | Outpatient (REF) | payer MEDICARE, BC, SELFPAY | LOC: HWEVLT 11:27 | PROVIDERS: ATTENDING PHYSICIAN Radiology Vascular & Interventional Radiology | DX: I83.891 Varicose veins of right lower extremity with other complications (principal) | CPT/HCPCS: 93971 ==

== ENCOUNTER 2025-10-06 09:47 | Outpatient (REF) | payer MEDICARE, BC, SELFPAY | END 2025-10-06 23:59 | disposition home or self-care (01) | LOC: WOUND 09:47 | PROVIDERS: ATTENDING PHYSICIAN Surgery; FAMILY PHYSICIAN Family Medicine | DX: L97.212 Non-pressure chronic ulcer of right calf with fat layer exposed (principal); L03.115 Cellulitis of right lower limb; R23.0 Cyanosis; I87.2 Venous insufficiency (chronic) (peripheral); E11.29 Type 2 diabetes mellitus with other diabetic kidney complication; L40.9 Psoriasis, unspecified; I50.30 Unspecified diastolic (congestive) heart failure; G62.9 Polyneuropathy, unspecified; I40.9 Acute myocarditis, unspecified; I48.0 Paroxysmal atrial fibrillation | CPT/HCPCS: 11042 ==

== ENCOUNTER 2025-10-14 10:40 | Outpatient (REF) | payer MEDICARE, BC, SELFPAY | END 2025-10-14 23:59 | disposition home or self-care (01) | LOC: WOUND 10:40 | PROVIDERS: ATTENDING PHYSICIAN Surgery; FAMILY PHYSICIAN Family Medicine | DX: L03.115 Cellulitis of right lower limb (principal); R23.0 Cyanosis; I87.2 Venous insufficiency (chronic) (peripheral); E11.29 Type 2 diabetes mellitus with other diabetic kidney complication; L40.9 Psoriasis, unspecified; I50.30 Unspecified diastolic (congestive) heart failure; G62.9 Polyneuropathy, unspecified; I48.0 Paroxysmal atrial fibrillation | CPT/HCPCS: 11042 ==

== ENCOUNTER 2025-10-17 13:40 | Outpatient (RCR) | payer MEDICARE, BC, SELFPAY ==
[2025-10-03] MEDS: VENOFER 110 MG IV (14:09)
[2025-10-03 14:23] VITALS: BP 126/70
[2025-10-10 14:00] VITALS: BP 143/57; BMI 43.5
[2025-10-10] MEDS: VENOFER 110 MG IV (14:16)
[2025-10-10 15:21] VITALS: BP 128/44
[2025-10-17 14:01] VITALS: BP 135/60
[2025-10-17] MEDS: VENOFER 110 MG IV (14:03)
[2025-10-17 15:20] VITALS: BP 135/63
== END 2025-10-18 10:10 | disposition home or self-care (01) ==
LOC: OID 13:40
PROVIDERS: ATTENDING PHYSICIAN Internal Medicine Gastroenterology; FAMILY PHYSICIAN Family Medicine
DX: D50.9 Iron deficiency anemia, unspecified (principal); K74.69 Other cirrhosis of liver; Z79.01 Long term (current) use of anticoagulants
CPT/HCPCS: 96365; J1756

== ENCOUNTER 2025-10-27 10:06 | Outpatient (REF) | payer MEDICARE, BC, SELFPAY | END 2025-10-27 23:59 | disposition home or self-care (01) | LOC: WOUND 10:06 | PROVIDERS: ATTENDING PHYSICIAN Registered Nurse; FAMILY PHYSICIAN Family Medicine | DX: L97.212 Non-pressure chronic ulcer of right calf with fat layer exposed (principal); L03.115 Cellulitis of right lower limb; R23.0 Cyanosis; I87.2 Venous insufficiency (chronic) (peripheral); E11.29 Type 2 diabetes mellitus with other diabetic kidney complication; L40.9 Psoriasis, unspecified; I50.30 Unspecified diastolic (congestive) heart failure; G62.9 Polyneuropathy, unspecified; I48.0 Paroxysmal atrial fibrillation | CPT/HCPCS: 11042 ==

== ENCOUNTER 2025-11-03 13:29 | Outpatient (REF) | payer MEDICARE, BC, SELFPAY | END 2025-11-03 23:59 | disposition home or self-care (01) | LOC: WOUND 13:29 | PROVIDERS: ATTENDING PHYSICIAN Registered Nurse; FAMILY PHYSICIAN Family Medicine | DX: L97.212 Non-pressure chronic ulcer of right calf with fat layer exposed (principal); L03.115 Cellulitis of right lower limb; R23.0 Cyanosis; I87.2 Venous insufficiency (chronic) (peripheral); E11.29 Type 2 diabetes mellitus with other diabetic kidney complication; L40.9 Psoriasis, unspecified; I50.30 Unspecified diastolic (congestive) heart failure; G62.9 Polyneuropathy, unspecified; I48.0 Paroxysmal atrial fibrillation | CPT/HCPCS: 97597 ==

== ENCOUNTER 2025-11-04 13:44 | Outpatient (RCR) | payer MEDICARE, BC, SELFPAY ==
[2025-10-28] MEDS: VENOFER 110 MG IV (14:16)
[2025-10-28 14:21] VITALS: BP 129/49
[2025-10-28 15:30] VITALS: BP 139/63
[2025-11-04 13:50] VITALS: BP 132/61
[2025-11-04] MEDS: VENOFER 110 MG IV (14:06)
[2025-11-04 15:36] VITALS: BP 132/59
== END 2025-11-07 10:56 | disposition home or self-care (01) ==
LOC: OID 13:44
PROVIDERS: ATTENDING PHYSICIAN Internal Medicine Gastroenterology; FAMILY PHYSICIAN Family Medicine
DX: D50.9 Iron deficiency anemia, unspecified (principal); Z79.01 Long term (current) use of anticoagulants; K74.69 Other cirrhosis of liver
CPT/HCPCS: 96365; J1756

== ENCOUNTER 2025-11-10 11:23 | Outpatient (REF) | payer MEDICARE, BC, SELFPAY | END 2025-11-10 23:59 | disposition home or self-care (01) | LOC: WOUND 11:23 | PROVIDERS: ATTENDING PHYSICIAN Registered Nurse; FAMILY PHYSICIAN Family Medicine | DX: L97.212 Non-pressure chronic ulcer of right calf with fat layer exposed (principal); L03.115 Cellulitis of right lower limb; R23.0 Cyanosis; I87.2 Venous insufficiency (chronic) (peripheral); E11.29 Type 2 diabetes mellitus with other diabetic kidney complication; I40.9 Acute myocarditis, unspecified; I50.30 Unspecified diastolic (congestive) heart failure; G62.9 Polyneuropathy, unspecified; I48.0 Paroxysmal atrial fibrillation | CPT/HCPCS: 97597 ==

== ENCOUNTER 2025-11-15 11:27 | Outpatient (REF) | payer MEDICARE, BC, SELFPAY | END 2025-11-15 23:59 | disposition home or self-care (01) | LOC: WOUND 11:27 | PROVIDERS: ATTENDING PHYSICIAN Registered Nurse; FAMILY PHYSICIAN Nuclear Medicine Nuclear Cardiology | DX: L97.212 Non-pressure chronic ulcer of right calf with fat layer exposed (principal); L03.115 Cellulitis of right lower limb; R23.0 Cyanosis; I87.2 Venous insufficiency (chronic) (peripheral); E11.29 Type 2 diabetes mellitus with other diabetic kidney complication; L40.9 Psoriasis, unspecified; I50.30 Unspecified diastolic (congestive) heart failure; G62.9 Polyneuropathy, unspecified; I48.0 Paroxysmal atrial fibrillation | CPT/HCPCS: 97597 ==

== ENCOUNTER 2025-11-22 10:26 | Outpatient (REF) | payer MEDICARE, BC, SELFPAY | END 2025-11-22 23:59 | disposition home or self-care (01) | LOC: WOUND 10:26 | PROVIDERS: ATTENDING PHYSICIAN Registered Nurse; FAMILY PHYSICIAN Family Medicine | DX: L97.212 Non-pressure chronic ulcer of right calf with fat layer exposed (principal); L03.115 Cellulitis of right lower limb; R23.0 Cyanosis; I87.2 Venous insufficiency (chronic) (peripheral); E11.29 Type 2 diabetes mellitus with other diabetic kidney complication; L40.9 Psoriasis, unspecified; I50.30 Unspecified diastolic (congestive) heart failure; G62.9 Polyneuropathy, unspecified; I48.0 Paroxysmal atrial fibrillation | CPT/HCPCS: 97597 ==

== ENCOUNTER 2025-11-23 11:12 | Emergency (ER) | payer MEDICARE, BC, SELFPAY ==
[2025-11-23] VITALS (8 sets, daily range): BP systolic 100–145; BP diastolic 36–69; BMI 42.6
[2025-11-23 12:25] LABS: ALT (SGPT) 26 U/L (0-50); AST (SGOT) 29 U/L (17-59); Albumin 4.3 g/dl (3.5-5.0); Alkaline Phosphatase 59 U/L (38-126); Blood Urea Nitrogen 31 mg/dl (9-20); Calcium 8.8 mg/dl (8.4-10.2); Carbon Dioxide 26 mmol/L (22-30); Chloride 102 mmol/L (98-107); Glucose 166 mg/dl (70-99); Potassium 4.7 mmol/L (3.5-5.1); Sodium 137 mmol/L (135-145); Total Protein 7.2 g/dl (6.3-8.2); eGFR > 60.00
[2025-11-23 12:37] LABS: Hematocrit 27.6 % (39.0-52.0); Hemoglobin 7.4 g/dL (13.0-18.0); Mean Corp Hgb Conc. 26.8 g/dL (33.0-37.0); Mean Corpuscular Volume 78.4 fL (80.0-94.0); Nucleated Red Blood Cells % 0.2 % (-); Platelet Count 306 10^3/uL (130-400); Red Cell Dist. Width 21.0 % (11.5-14.5)
[2025-11-23 13:04] LABS: Anisocytosis Slight; Hypochromasia 2+; Macrocytosis Few; Normal RBC Morphology No; Ovalocytes Few; Polychromasia Slight
--- NOTE | 2025-11-23 17:10 | ED.GENMED ---
History of Present Illness
General
Chief Complaint: Abnormal Lab Value
Source: patient
Exam Limitations: none
Time Seen by Provider: 11/23/25 16:48
History of Present Illness
History of Present Illness:
65yoM with a history of atrial fibrillation on Eliquis, hypertension, hyperlipidemia, type 2 diabetes, and ulcerative proctitis presenting for abnormal outpatient labs. Patient had routine blood work 2 days ago during a yearly physical and
hemoglobin was 7.3. He was called today and told to go to the ED for a blood transfusion. His last hemoglobin in August was around 8 per patient. He does report rectal bleeding although this is chronic for him. 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
He denies any dizziness, syncope, shortness of breath, fatigue. He is scheduled to leave for a cruise in 2 days and explicitly states that he does not want to be admitted.
Past History
Past History
ED Past Medical History: HTN, Hypercholesterolemia, Hypothyroidism and Other (psoriasis)
Social History
Personal:
Living: with family
Employment: Retired
Phy Exam
General Physical Exam
General Presentation: well appearing and no apparent distress
General age: appears stated age
General Skin: warm and dry
General Habitus: normal
General Mental: alert
ENT Exam
ENT Exam: normocephalic
Cardiovascular Exam
Cardiovascular Exam: regular rate/rhythm and no edema
Pulmonary Exam
Pulmonary Exam: lungs clear, no respiratory distress, no rales, no crackles, no rhonchi, no stridor and no wheezing
Neurological Exam
Neurological Exam: alert
Shanna Coma Scale
Eye Opening: Spontaneous
Verbal Response: Oriented
Motor Response: Obeys Commands
GCS Total Score: 15
Skin Exam
Skin Exam: normal color and warm/dry
Psychiatric Exam
Psychiatric Exam: normal mood/affect
Course
Orders/Labs/Results
Orders:
Orders
11/23/25 12:00
Type+Screen Urgent
Complete Blood Count/With Diff Urgent
Comprehensive Metabolic Panel Urgent
11/23/25 17:09
Blood Bank Products [* Blood Bank Products] Urgent
Blood Bank Products: *Packed RBC Leuko (PRBC's
Quantity: 1
Transfuse Today: Yes
Reason: Anemia
Abnormal Lab Results
11/23/25
12:00
RBC 3.52 L 10^6/uL
(4.70-6.10)
Hgb 7.4 L g/dL
(13.0-18.0)
Hct 27.6 L %
(39.0-52.0)
MCV 78.4 L fL
(80.0-94.0)
MCH 21.0 L pg
(27.0-31.0)
MCHC 26.8 L g/dL
(33.0-37.0)
RDW 21.0 H %
(11.5-14.5)
Abs Immat Gran (auto) 0.1 H 10^3/uL
(0-0.05)
Absolute Neuts (auto) 6.6 H 10^3/uL
(1.4-6.5)
Absolute Lymphs (auto) 0.9 L 10^3/uL
(1.2-3.4)
Absolute Monos (auto) 0.7 H 10^3/uL
(0.1-0.6)
Immature Gran % 0.7 H %
(0-0.5)
Neutrophils % 77.1 H %
(42.2-75.2)
Lymphocytes % 10.6 L %
(20.5-51.1)
BUN 31 H mg/dl
(9-20)
Glucose 166 H mg/dl
(70-99)
Crossmatch IS Only See Detail
11/23/25 12:00
11/23/25 12:00
Vital Signs
Initial and Last Documented VS:
Initial Vital Signs
Temp Pulse Resp BP Pulse Ox
98.1 F 70 18 100/54 93
11/23/25 11:49 11/23/25 11:49 11/23/25 11:49 11/23/25 11:49 11/23/25 11:49
Last Documented Vital Signs
Temp Pulse Resp BP Pulse Ox
98.2 F 66 20 145/69 98
11/23/25 19:40 11/23/25 19:40 11/23/25 19:40 11/23/25 19:40 11/23/25 19:15
MDM/Problems Addressed
Differential Diagnosis Includes:
65yoM presenting for a hemoglobin of 7.3 on outpatient labs 2 days ago. C/o rectal bleeding but this is not unusual for him due to hx of ulcerative proctitis. VSS. He is well appearing in no distress and he is declining rectal exam. Repeat labs
obtained in triage and hemoglobin slightly improved to 7.4.
Patient is scheduled to leave for a cruise in 2 days. He does have chronic anemia and is currently receiving outpatient iron infusions. He is adamant that he does not want to be hospitalized and was told by his PCP that he could simply come to the
ED for a blood transfusion and be discharged afterwards. Consent obtained and 1 unit PRBCs ordered for transfusion.
*Pulse Oximetry
SaO2: 93
Patient hypoxic: no
*Critical Care Note
Total Time (30-74mins, 75-104mins- exclusive of procedures): Not Applicable
Update Note
Update Note:
Patient reassessed multiple times throughout transfusion and patient tolerated this well. He remains asymptomatic on reassessment and vitals remained stable. At this point, will discharge. He was advised to follow-up closely with his PCP and
flexographic press set up operator when he returns home from his vacation. ED return precautions reviewed and he was discharged in stable condition.
ED Attending Note
-
Portions of this chart may have been created with voice recognition software.� Occasional wrong word or��sound alike� substitutions may have occurred due to the inherent limitations of voice recognition software.
Discharge Plan
Departure
Patient Disposition: Home (Routine Discharge)
Date of Disposition: 11/23/25
Time of Disposition: 19:32
Patient with high blood pressure during this ER visit?: No
Discharge Problem:
Anemia
Instructions: Anemia in adults, possibly from low iron - ED (DC)
Prescriptions:
No Action
metoprolol succinate 50 MG tablet extended release 24 hr
50 mg PO BID
losartan 100 MG tablet
100 mg PO DAILY
gabapentin 400 MG capsule
1,600 mg PO BID
Patient Comments:
06/08/2024: Prescribed as 800mg po TID
levothyroxine [Synthroid] 25 mcg Tablet
25 mcg PO DAILY
levothyroxine [Synthroid] 200 mcg Tablet
200 mcg PO DAILY
tamsulosin 0.4 mg Capsule
0.4 mg PO HS
pantoprazole 40 mg Tablet,Delayed Release (Dr/Ec)
40 mg PO DAILY
finasteride 5 mg Tablet
5 mg PO DAILY
Jardiance 10 mg Tablet
10 mg PO DAILY
triamcinolone acetonide 0.1 % Ointment
1 applic TOPICAL DAILYPRN PRN (Reason: psorasis)
atorvastatin 20 mg Tablet
20 mg PO DAILY
cholecalciferol (vitamin D3) 25 mcg (1,000 unit) Tablet
25 mcg PO DAILYPRN PRN (Reason: supplement)
therapeutic multivitamin Tablet
1 tab PO DAILY
furosemide 40 mg Tablet
40 mg PO BID AT 0800,1600 30 Days Qty: 60 0RF
famotidine 40 mg Tablet
40 mg PO DAILY
spironolactone 50 mg Tablet
25 mg PO DAILY
clobetasol-calcipotriene 0.05-0.005 % Solution
1 ml TOPICAL PRN PRN (Reason: psoriasis)
polyethylene glycol 3350 [Miralax] 17 gram/dose Powder
4 g PO DAILY
mecobalamin (vitamin B12) [B12 Active] 1,000 mcg Tablet,Chewable
1,000 mcg PO DAILY
calcipotriene 0.005 % Cream
1 applic TOPICAL DAILY
Santyl 250 unit/gram Ointment
1 applic TOPICAL DAILY
Rx Instructions:
tO RIGHT LEG WOUND
Eliquis 5 mg Tablet
5 mg PO BID
Skyrizi
1 unit SC .[id number]
Referrals:
UNKNOWN - PT DOES,NOT KNOW [Family Provider]
Activity Restrictions/Additional Instructions:
Please follow-up with your family doctor and flexographic press set up operator as soon as you return home from your trip. Return to the ER immediately with any new or worsening symptoms.
Interventions
Interventions:
*General Assessment Last Done: 11/23/25 17:23
*Neglect/Abuse Screening Last Done: 11/23/25 17:23
*ED COVID-19 Vaccine History Last Done: 11/23/25 17:23
*ED Influenza Vaccine History Last Done: 11/23/25 17:23
[facility] Fall Risk Assessment Tool Last Done: 11/23/25 17:23
*Risk Screen - Suicide (C-SSRS) Last Done: 11/23/25 17:23
*Nursing Disposition Last Done: 11/23/25 19:56
Discharge Date and Time
Discharge Date/Time: 11/23/25 19:56
Print Language: TONGAN
== END 2025-11-23 19:56 | disposition home or self-care (01) ==
LOC: EMR 11:12
PROVIDERS: Emergency Medicine; EMERGENCY PHYSICIAN Emergency Medicine
DX: D64.9 Anemia, unspecified (principal); E11.9 Type 2 diabetes mellitus without complications; I48.91 Unspecified atrial fibrillation; I10 Essential (primary) hypertension; E78.00 Pure hypercholesterolemia, unspecified; E03.9 Hypothyroidism, unspecified; K51.211 Ulcerative (chronic) proctitis with rectal bleeding; L40.9 Psoriasis, unspecified; Z79.01 Long term (current) use of anticoagulants; Z79.84 Long term (current) use of oral hypoglycemic drugs
CPT/HCPCS: 99285; 36430; 80053; 85025; 86850; 86900; 86901; 86920; P9016